=== PATIENT | male | born 1980 | race Caucasian/White ===

== ENCOUNTER → 2022-01-03 12:47 | Outpatient (BNVA) | payer MEDICARE, MEDICAID, SELFPAY | PROVIDERS: PCP Internal Medicine; Visit Provider Nurse Practitioner Family | DX: G43.109 Migraine with aura, not intractable, without status migrainosus (principal); R42 Dizziness and giddiness | CPT/HCPCS: 99212 ==

== ENCOUNTER → 2022-04-25 12:53 | Outpatient (BNVA) | payer MEDICARE, MEDICAID, SELFPAY | PROVIDERS: PCP Internal Medicine; Visit Provider Nurse Practitioner Family | DX: G43.109 Migraine with aura, not intractable, without status migrainosus (principal); R42 Dizziness and giddiness; Z79.899 Other long term (current) drug therapy | CPT/HCPCS: 99212 ==

== ENCOUNTER → 2022-08-13 14:08 | Outpatient (BNVA) | payer MEDICARE, MEDICAID, SELFPAY | PROVIDERS: PCP Internal Medicine; Visit Provider Nurse Practitioner Family | DX: G43.109 Migraine with aura, not intractable, without status migrainosus (principal); R42 Dizziness and giddiness; R25.1 Tremor, unspecified; E10.9 Type 1 diabetes mellitus without complications; Z79.899 Other long term (current) drug therapy | CPT/HCPCS: 99212 ==

== ENCOUNTER → 2022-12-17 11:22 | Outpatient (BNVA) | payer MEDICARE, MEDICAID, SELFPAY | PROVIDERS: PCP Internal Medicine; Visit Provider Nurse Practitioner Family | DX: G43.109 Migraine with aura, not intractable, without status migrainosus (principal); E10.9 Type 1 diabetes mellitus without complications; H81.10 Benign paroxysmal vertigo, unspecified ear; G47.00 Insomnia, unspecified; F31.9 Bipolar disorder, unspecified; F10.21 Alcohol dependence, in remission; Z79.4 Long term (current) use of insulin; Z79.899 Other long term (current) drug therapy | CPT/HCPCS: 99212 ==

== ENCOUNTER → 2023-03-19 12:41 | Outpatient (BNVA) | payer MEDICARE, MEDICAID, SELFPAY | PROVIDERS: PCP Internal Medicine; Visit Provider Nurse Practitioner Family | DX: G43.109 Migraine with aura, not intractable, without status migrainosus (principal); R42 Dizziness and giddiness; R25.1 Tremor, unspecified | CPT/HCPCS: 99212 ==

== ENCOUNTER 2023-07-22 11:21 | Outpatient (AMB) | payer MEDICARE, MEDICAID, SELFPAY ==
--- NOTE | 2023-07-22 11:22 | MHC.OFFVIS ---
Intake Vital Signs 07/22/23 11:31 BP 118/74 Blood Pressure Location Rt brachial Position Sitting Pulse 86 Pulse Source Pulse Oximeter Pulse Oximetry (%) 98 Oxygen Delivery Method Room Air Intake Visit Reasons: 4m follow up - Confirmed Intake Note: Patient presents for 4 month follow up. Patient states I've had only one big headache since I seen her last seems like sumatriptan is working Allergies pork derived (porcine) Allergy (Severe, Verified 07/22/23 11:29) Diarrhea simvastatin Allergy (Severe, Verified 07/22/23 11:29) Muscle Pain Latex Allergy (Severe, Uncoded 07/22/23 11:29) Rash Sulfa Allergy (Unknown, Uncoded 07/22/23 11:29) Anaphylaxis Medication List - Last Reconciled 07/22/23 by ROBERT Pederson atorvastatin 20 mg PO DAILY calcipotriene 0.005% appl topical BID clonazepam 0.5 mg PO DAILY finasteride 5 mg PO DAILY fluoxetine 40 mg PO DAILY fluoxetine 0 mg PO fremanezumab-vfrm (Ajovy) 225 mg (1.5 mL) subcut ONCE 30 days gabapentin 300 mg (1/2 x 600 mg) PO BID 30 days insulin lispro (Humalog KwikPen (U-100) Insulin) 1 - 5 sliding scale doses subcut TID insulin lispro (Humalog U-100 Insulin) 0 - 100 units subcut DAILY lamotrigine 100 mg PO DAILY lamotrigine ER 25 mg PO DAILY lisinopril 2.5 mg PO DAILY olanzapine mg PO quetiapine ER 400 mg PO QPM sumatriptan succinate 50 - 100 mg (0.5 - 1 x 100 mg) PO Q2H PRN 30 days topiramate 50 mg PO BID 90 days triamcinolone acetonide 0.1% 1 appl topical BID-TID zolpidem 10 mg PO BEDTIME PRN HPI HPI Comments History of Present Illness Details 42-yr-old male presents for f/u visit. Pt denies any significant interval medical changes. However, he is concerned that over the last few weeks he is increasingly more tired and sleepy during the day. he is yawning more. He is not napping as he does not wnat to interfere w/ his noighttime sleep- so when drowsiness he tries to get up and be active. He states he is sleeping 8 hrs per night. Not sure if he snores- lives alone. Deies any recent infections, fevers, joint pains, numbness/tingling. No recent changes in his mood or psych med regimen. Recent CBC, CMP, HgA1C- Nl. He has never had a HST. His headaches are well-controlled on current regimen- has had a few mild-mod headaches and 1 severe migraine attack (reports just crept up on him) since last visit 4 months ago. He feels Ajovy works well, however injection may be uncomfortable. He manages dizziness by pacing activities and avoiding over stimulation. Tremor is stable. [facility] Medical History (Updated 07/22/23 @ 11:43 by ROBERT Pederson) Alcoholism in remission Benign prostate hyperplasia Bipolar disorder BPPV (benign paroxysmal positional vertigo) GERD (gastroesophageal reflux disease) HLD (hyperlipidemia) Insomnia Psoriasis Type I diabetes mellitus Surgical History Hx of appendectomy Family History Father Diabetes mellitus Heart disease Hypothyroidism Social History (Updated 03/19/23 @ 12:52 by Diana Jacobs CMA) Alcohol intake: former Year quit: 2019 Patient Tobacco Use Status: Former Tobacco user Tobacco use type: Cigarette Years Smoked: 10 years Review of Systems Const All systems reviewed & are unremarkable except as noted in HPI and below Physical Exam Vital Signs: Last Vital Signs Pulse 86 07/22/23 11:31 BP 118/74 07/22/23 11:31 Pulse Ox 98 07/22/23 11:31 Oxygen Delivery Method Room Air 07/22/23 11:31 Const General: cooperative and no acute distress Orientation/consciousness: patient oriented x3 HEENT Head: Yes normocephalic Resp Effort & Inspection: normal respiratory effort and able to speak in complete sentences Neuro General: patient oriented x3, gait normal and CN's II-XI intact bilaterally Cognition (Neuro): normal cognition Motor exam (neuro): 5/5 motor strength present throughout Psych Appearance: grossly normal Mental Status: mental status grossly normal Speech and movement: Normal speech and movement present Affect: normal affect Attitude: cooperative Thought process: Normal thought process present Thought content: Normal thought content present Insight: Good insight present (Psych) Judgement: Good judgement present (Psych) Assessment & Plan Assessment & Plan (1) Fatigue: Code(s): R53.83 - Other fatigue (2) Migraine with aura: Code(s): G43.109 - Migraine with aura, not intractable, without status migrainosus (3) Dizziness: Comment: likely vestibular migraine. normal brain MRI w/wo (Jul 2021) Code(s): R42 - Dizziness and giddiness (4) Tremor: Comment: ? ET or neuroleptic induced Code(s): R25.1 - Tremor, unspecified Plan For newer onset increased daytime sleepiness- Check labs for common etiologies. Future considerations: HST For migraine and dizziness: Continue Ajovy 225mg/1.5 ml sc once a month, as pt is already having good clinical effect. Allow Ajovy to come to room temp x's 60-90 min before injection- may lessen injection discomfort. Continue Topiramate 50mg bid. Continue prn Sumatriptan at onset of migraine. Continue Lamotrigene- per psych. Continue using green lights and blue light filtering glasses. Continue limiting dizziness triggers, pacing activities. Previous trial: Amitriptyline- ineffective. Contraindications: Beta-blockers d/t h/o diabetes type I. ? For tremor: Continue Gabapentin 300mg po bid (note pt cannot take capsule d/t pork allergy). Contraindications: Beta-blockers d/t h/o diabetes type I. Orders: Orders Vitamin B12 and Folate Today R25.1 - Tremor, unspecified, R42 - Dizziness and giddiness, R53.83 - Other fatigue TSH reflex Free T4 Today R25.1 - Tremor, unspecified, R42 - Dizziness and giddiness, R53.83 - Other fatigue Vitamin D 25-OH (D2 and D3) Today R25.1 - Tremor, unspecified, R42 - Dizziness and giddiness, R53.83 - Other fatigue Coding Level of Care Code Est Pt Level 4 (76432) Diagnoses Fatigue R53.83 Migraine with aura G43.109 Dizziness R42 Tremor R25.1
[2023-07-22 11:31] VITALS: BP 118/74; PULSE 86; O2SAT 98
== END 2023-07-22 12:02 | disposition home or self-care (01) ==
PROVIDERS: Visit Provider Nurse Practitioner Family
DX: R53.83 Other fatigue (principal); G43.109 Migraine with aura, not intractable, without status migrainosus; R42 Dizziness and giddiness; R25.1 Tremor, unspecified
CPT/HCPCS: 99214

== ENCOUNTER → 2023-07-22 11:21 | Outpatient (BNVA) | payer MEDICARE, MEDICAID, SELFPAY | PROVIDERS: Visit Provider Nurse Practitioner Family | DX: R25.1 Tremor, unspecified (principal); R42 Dizziness and giddiness; R53.83 Other fatigue; G43.709 Chronic migraine without aura, not intractable, without status migrainosus | CPT/HCPCS: 99212 ==

== ENCOUNTER 2023-11-12 11:01 | Outpatient (AMB) | payer MEDICARE, MEDICAID, SELFPAY ==
[2023-11-12 11:14] VITALS: BP 108/60; PULSE 94; O2SAT 98; BMI 27.8
--- NOTE | 2023-11-12 11:14 | MHC.OFFVIS ---
Intake Vital Signs 11/12/23 11:14 Height 5 ft 11 in Weight 199 lb BMI 27.8 BP 108/60 Blood Pressure Location Rt brachial Position Sitting Pulse 94 Pulse Source Pulse Oximeter Pulse Oximetry (%) 98 Oxygen Delivery Method Room Air Intake Visit Reasons: 4m follow up-Confirmed Intake Note: Patient presents for 4 month follow up. Allergies pork derived (porcine) Allergy (Severe, Verified 11/12/23 11:16) Diarrhea simvastatin Allergy (Severe, Verified 11/12/23 11:16) Muscle Pain Latex Allergy (Severe, Uncoded 11/12/23 11:16) Rash Sulfa Allergy (Unknown, Uncoded 11/12/23 11:16) Anaphylaxis Medication List - Last Reconciled 11/12/23 by ROBERT Pederson atorvastatin 20 mg PO DAILY calcipotriene 0.005% appl topical BID cholecalciferol (vitamin D3) 25 mcg PO DAILY 30 days clonazepam 0.5 mg PO DAILY finasteride 5 mg PO DAILY fluoxetine 40 mg PO DAILY fluoxetine 0 mg PO folic acid 1 mg PO DAILY 30 days fremanezumab-vfrm (Ajovy) 225 mg (1.5 mL) subcut ONCE 30 days gabapentin 300 mg (1/2 x 600 mg) PO BID 30 days insulin lispro (Humalog KwikPen (U-100) Insulin) 1 - 5 sliding scale doses subcut TID insulin lispro (Humalog U-100 Insulin) 0 - 100 units subcut DAILY lamotrigine 100 mg PO DAILY lamotrigine ER 25 mg PO DAILY lisinopril 2.5 mg PO DAILY olanzapine mg PO quetiapine ER 400 mg PO QPM sumatriptan succinate 50 - 100 mg (0.5 - 1 x 100 mg) PO Q2H PRN 30 days topiramate 50 mg PO BID 90 days triamcinolone acetonide 0.1% 1 appl topical BID-TID zolpidem 10 mg PO BEDTIME PRN HPI HPI Comments History of Present Illness Details 43-yr-old male presents for f/u visit. Pt reports that he did recently hit the front of his head on his chicken coop- had some concussion s/s- dizziness, nausea, poor vision focus, headache x's a few days. This has self-resolved. Since he has not had any migraine attacks. Prior to this: He had forgotten to refill his Ajovy shortly after his last visit. After this he was able to manage his migraines with rest and/or sporadic sumatriptan use. Prior to the above concussion, he had noticed an increase in his migraine x's 2 weeks in the past month- needed to use sumatriptan 4-5 times over a 2 week span.. The Sumatriptan was helpful. He does continue to minimize his triggers. He is not interested in resuming Ajovy- the injections were painful and does not think was very helpful. His labs showed B-12- 576 NL Folate 3.2 L TSH- 2.7 NL Vtd D- 27.5 He did start folic acid 1mg after labs reviewed- he reports that his fatigue improved. he did run out of the folic acid more rcently and has been again feeling more tired. He wonder sif he can buy this OTC. [facility] Medical History (Updated 07/26/23 @ 08:27 by ROBERT Pederson) Psoriasis Alcoholism in remission Type I diabetes mellitus Insomnia HLD (hyperlipidemia) GERD (gastroesophageal reflux disease) Bipolar disorder Benign prostate hyperplasia BPPV (benign paroxysmal positional vertigo) Surgical History Hx of appendectomy Family History Father Diabetes mellitus Heart disease Hypothyroidism Social History Alcohol intake: former Year quit: 2019 Patient Tobacco Use Status: Former Tobacco user Tobacco use type: Cigarette Years Smoked: 10 years Review of Systems Const All systems reviewed & are unremarkable except as noted in HPI and below Physical Exam Vital Signs: Last Vital Signs Pulse 94 11/12/23 11:14 BP 108/60 11/12/23 11:14 Pulse Ox 98 11/12/23 11:14 Oxygen Delivery Method Room Air 11/12/23 11:14 BMI result Body Mass Index 27.8 Const General: cooperative and no acute distress Orientation/consciousness: patient oriented x3 HEENT Head: Yes normocephalic Resp Effort & Inspection: normal respiratory effort and able to speak in complete sentences Neuro General: patient oriented x3, gait normal and CN's II-XI intact bilaterally Cognition (Neuro): normal cognition Motor exam (neuro): 5/5 motor strength present throughout Psych Appearance: grossly normal Mental Status: mental status grossly normal Speech and movement: Normal speech and movement present Affect: normal affect Attitude: cooperative Thought process: Normal thought process present Thought content: Normal thought content present Insight: Good insight present (Psych) Judgement: Good judgement present (Psych) Assessment & Plan Assessment & Plan (1) Migraine with aura: Code(s): G43.109 - Migraine with aura, not intractable, without status migrainosus (2) Dizziness: Comment: likely vestibular migraine. normal brain MRI w/wo (Jul 2021) Code(s): R42 - Dizziness and giddiness (3) Low folic acid: Code(s): E53.8 - Deficiency of other specified B group vitamins (4) Fatigue: Code(s): R53.83 - Other fatigue Plan For daytime sleepiness: Resume Folic Acid 1mg qd- may purchase OTC. Offered to repeat folic acid level today- pt declined at this time d/t [id number] cost. Future considerations: HST ? For migraine and dizziness: Pt stopped Ajovy 225mg. Continue Topiramate 50mg bid. Continue prn Sumatriptan at onset of migraine. Continue Lamotrigene- per psych. Continue using green lights and blue light filtering glasses. Continue limiting dizziness triggers, pacing activities. Previous trial: Amitriptyline- ineffective. Ajovy- injection site pain, limited efficacy. Contraindications: Beta-blockers d/t h/o diabetes type I. Future considerations- Nurtec, Qulipta, Neuromodulation device. ? For tremor: Continue Gabapentin 300mg po bid (note pt cannot take capsule d/t pork allergy). Contraindications: Beta-blockers d/t h/o diabetes type I. Medications: Refilled sumatriptan succinate max 2 tabs per day/4 tabs per week. 50 - 100 mg (0.5 - 1 x 100 mg) PO Q2H 30 days PRN 12 tabs 6RF migraine Discontinued fremanezumab-vfrm (Ajovy) administer 225mg sc q month Discontinued Reason: Doctor's Order 225 mg (1.5 mL) subcut ONCE 30 days 1.5 mL 6RF G43.109 - Migraine with aura, not intractable, without status migrainosus Coding Level of Care Code Est Pt Level 4 (84479) Diagnoses Migraine with aura G43.109 Dizziness R42 Low folic acid E53.8 Fatigue R53.83
== END 2023-11-12 11:48 | disposition home or self-care (01) ==
PROVIDERS: PCP Internal Medicine; Visit Provider Nurse Practitioner Family
DX: G43.109 Migraine with aura, not intractable, without status migrainosus (principal); R42 Dizziness and giddiness; E53.8 Deficiency of other specified B group vitamins; R53.83 Other fatigue
CPT/HCPCS: 99214

== ENCOUNTER → 2023-11-12 11:01 | Outpatient (BNVA) | payer MEDICARE, MEDICAID, SELFPAY | PROVIDERS: PCP Internal Medicine; Visit Provider Nurse Practitioner Family | DX: G43.109 Migraine with aura, not intractable, without status migrainosus (principal); R42 Dizziness and giddiness; E53.8 Deficiency of other specified B group vitamins; R53.83 Other fatigue | CPT/HCPCS: 99212 ==

== ENCOUNTER → 2024-02-13 11:23 | Outpatient (BNVA) | payer MEDICARE, MEDICAID, SELFPAY | PROVIDERS: PCP Internal Medicine; Visit Provider Nurse Practitioner Family ==

== ENCOUNTER 2024-07-17 11:13 | Outpatient (AMB) | payer MEDICARE, MEDICAID, SELFPAY ==
--- NOTE | 2024-07-17 11:14 | MHC.OFFVIS ---
Vital Signs 07/17/24 11:15 Height 5 ft 11 in Weight 176 lb BMI 24.5 BP 98/74 Blood Pressure Location Rt brachial Position Sitting Pulse 102 H Pulse Source Pulse Oximeter Pulse Oximetry (%) 99 Oxygen Delivery Method Room Air Intake Visit Reasons: Follow Up-LVM Intake Note: Patient presents for follow up.patient migraines and dizziness are worst. Allergies pork derived (porcine) Allergy (Severe, Verified 07/17/24 11:17) Diarrhea simvastatin Allergy (Severe, Verified 07/17/24 11:17) Muscle Pain Latex Allergy (Severe, Uncoded 07/17/24 11:17) Rash Sulfa Allergy (Unknown, Uncoded 07/17/24 11:17) Anaphylaxis Medication List - Last Reconciled 07/17/24 by ROBERT Pederson atorvastatin 20 mg PO DAILY calcipotriene 0.005% appl topical BID cholecalciferol (vitamin D3) 25 mcg PO DAILY 30 days clonazepam 0.5 mg PO DAILY finasteride 5 mg PO DAILY fluoxetine 40 mg PO DAILY fluoxetine 0 mg PO folic acid 1 mg PO DAILY 30 days gabapentin 300 mg (1/2 x 600 mg) PO BID 30 days insulin lispro (Humalog KwikPen (U-100) Insulin) 1 - 5 sliding scale doses subcut TID insulin lispro (Humalog U-100 Insulin) 0 - 100 units subcut DAILY lamotrigine 100 mg PO DAILY lamotrigine ER 25 mg PO DAILY lisinopril 2.5 mg PO DAILY olanzapine mg PO quetiapine ER 400 mg PO QPM sumatriptan succinate 50 - 100 mg (0.5 - 1 x 100 mg) PO Q2H PRN 30 days topiramate 50 mg PO BID 90 days triamcinolone acetonide 0.1% 1 appl topical BID-TID zolpidem 10 mg PO BEDTIME PRN HPI Comments Details: 43-yr-old male presents for f/u visit. Pt endorses the following interval medical history changes: He reports he had an episode of syncope in early January 2023. He went out to take care of the chickens- maybe in the mid-day, when next thing he knew he was on the ground. He does not know how long he was on the ground. He has difficulty recalling the details, however he states as he came to he felt feeling a bit unsure of what happened, his balance was a bit off and tired. He did not have [employer] or tongue biting. He does not think he hit his head- as he did not have any signs of bumps, bruises or injury. He was able to get up on his own, and went into his house and sat down for the rest of the day. He states he felt fine prior to going outside. He had already eaten. His blood sugar was WNL. He does not recall having any associated headache, dizziness, ear pain, infection. He had not missed any of his lamotrigine, Topiramate, or Gabapentin doses- used for headache and mood d/o. He thinks maybe he sat down and just passed out- he thinks maybe he was dizzy before he sat down. But does not think he was dizzy afterwards. He has never passed out before or had a seizure. He has not passed out since. He is not prone to orthostatic lightheadedness, staring off, chest pain, palpitations. He denies family h/o syncope, seizures. Overall having more headaches. In the last month, he has had 3 more severe migraine days where he took sumatripatn, however he has daily symptoms of bilateral supraorbital and retroorbital pressure a/w dizziness and activity intolerance. Dizziness is more easily triggered. His tremor is better on Gabapentin. [facility] Medical History Psoriasis Alcoholism in remission Type I diabetes mellitus Insomnia HLD (hyperlipidemia) GERD (gastroesophageal reflux disease) Bipolar disorder Benign prostate hyperplasia BPPV (benign paroxysmal positional vertigo) Surgical History Hx of appendectomy Family History Father Diabetes mellitus Heart disease Hypothyroidism Social History Alcohol intake: former Year quit: 2019 Patient Tobacco Use Status: Former Tobacco user Tobacco use type: Cigarette Years Smoked: 10 years Physical Exam Vital Signs: Last Vital Signs Pulse 102 H 07/17/24 11:15 BP 98/74 07/17/24 11:15 Pulse Ox 99 07/17/24 11:15 Oxygen Delivery Method Room Air 07/17/24 11:15 BMI result Body Mass Index 24.5 Const General: cooperative and no acute distress Orientation/consciousness: patient oriented x3 Resp Effort & Inspection: normal respiratory effort and able to speak in complete sentences Neuro Other: EOM intact but increases bilateral retroorbital and supraorbital pressure pain. BUE very mild postural tremor. General: patient oriented x3 and deep tendon reflexes 2+ bilaterally Cranial nerves: Yes CN's II-XII intact bilaterally Cognition (Neuro): normal cognition Gait exam (Neuro): Normal gait present Motor exam (neuro): 5/5 motor strength present throughout Psych Appearance: grossly normal Mental Status: mental status grossly normal Speech and movement: Normal speech and movement present Affect: normal affect Attitude: cooperative Assessment & Plan Assessment & Plan (1) Syncope and collapse: Code(s): R55 - Syncope and collapse Category: Medical (2) Migraine with aura: Code(s): G43.109 - Migraine with aura, not intractable, without status migrainosus Category: Medical (3) Dizziness: Comment: likely vestibular migraine. normal brain MRI w/wo (Jul 2021) Code(s): R42 - Dizziness and giddiness Category: Medical (4) Tremor: Comment: ? ET or neuroleptic induced Code(s): R25.1 - Tremor, unspecified Category: Medical Plan For h/o unwitnessed isolated syncope in January 2024: Pt does not recall specifics of syncopal episode and unsure of duration making etiology unclear. Possibly cardiogenic, as pt is prone to hypotension and dizziness, though generally good w/ taking fluids. Possibly epileptic, as pt does recall post-syncopal tiredness, feeling off-balance and pt is on multiple AEDs for tx of mood/migraine. Will request recent PCP notes from Dr Coelho. Thus pt advised to undergo: Baseline EEG. Brain MRI w/wo Cardiology consult. For daytime sleepiness: Continue folic Acid 1mg qd- may purchase OTC, as pt has had positive effect from use. Future considerations: HST ? For migraine and dizziness: Resume Ajovy 225mg sc q month. Monitor injection site discomfort. May try applying ice to injection site prior to injection. Continue Topiramate 50mg bid. Continue prn Sumatriptan at onset of migraine. Continue Lamotrigene- per psych. Continue using green lights and blue light filtering glasses. Continue limiting dizziness triggers, pacing activities. Previous trial: Amitriptyline- ineffective. Contraindications: Beta-blockers d/t h/o diabetes type I. Nurtec- d/t pork allergy. Ant-HTN agents d/t h/o syncope and hypotension. Future considerations- Aimovig Qulipta, Vyepti, Neuromodulation device. ? For tremor: Continue Gabapentin 300mg po bid (note pt cannot take capsule d/t pork allergy). Contraindications: Beta-blockers d/t h/o diabetes type I. Orders: Orders MR head/brain wo/w con Today R55 - Syncope and collapse EEG electroencephalogram Today R55 - Syncope and collapse Referrals Cardiology Referral R55 - Syncope and collapse Medications: New fremanezumab-vfrm (Ajovy) administer 225mg sc q month 225 mg (1.5 mL) subcut ONCE 30 days 1.5 mL 6RF Coding Level of Care Code Est Pt Level 4 (37583) Diagnoses Syncope and collapse R55 Migraine with aura G43.109 Dizziness R42 Tremor R25.1
[2024-07-17 11:15] VITALS: BP 98/74; PULSE 102; O2SAT 99; BMI 24.5
== END 2024-07-17 12:14 | disposition home or self-care (01) ==
LOC: HO.HSMS 11:13
PROVIDERS: PCP Internal Medicine; Visit Provider Nurse Practitioner Family
DX: R55 Syncope and collapse (principal); G43.109 Migraine with aura, not intractable, without status migrainosus; R42 Dizziness and giddiness; R25.1 Tremor, unspecified
CPT/HCPCS: 99214

== ENCOUNTER → 2024-07-17 11:13 | Outpatient (BNVA) | payer MEDICARE, MEDICAID, SELFPAY | PROVIDERS: PCP Internal Medicine; Visit Provider Nurse Practitioner Family | DX: G43.109 Migraine with aura, not intractable, without status migrainosus (principal); R55 Syncope and collapse; R42 Dizziness and giddiness; R25.1 Tremor, unspecified | CPT/HCPCS: 99212 ==

== ENCOUNTER 2024-08-11 09:27 | Outpatient (REF) | payer MEDICARE, MEDICAID, SELFPAY | END 2024-08-11 09:28 | disposition home or self-care (01) | LOC: HO.SH 09:27 | PROVIDERS: Visit Provider Internal Medicine | DX: Z01.118 Encounter for examination of ears and hearing with other abnormal findings (principal); H90.A22 Sensorineural hearing loss, unilateral, left ear, with restricted hearing on the contralateral side | CPT/HCPCS: 92557; 92567 ==

== ENCOUNTER → 2024-08-23 12:28 | Outpatient (BNV) | payer MEDICARE, MEDICAID, SELFPAY | PROVIDERS: PCP Internal Medicine; Visit Provider Radiology Diagnostic Radiology | DX: R55 Syncope and collapse (principal) | CPT/HCPCS: 70553 ==

== ENCOUNTER 2024-08-23 12:29 | Outpatient (REF) | payer MEDICARE, MEDICAID, SELFPAY ==
--- NOTE | ~2024-08-23 | MR_ITS ---
EXAMINATION: MR BRAIN WITHOUT AND WITH CONTRAST CLINICAL INFORMATION: Syncope. Dizziness. COMPARISON: MRI dated October 16, 2012. Correlated to MRI report dated June 02, 2017. TECHNIQUE: Multiplanar, multisequence MRI of the brain was obtained before and after the intravenous administration of 8.5 mL of gadolinium without reported immediate complications. FINDINGS: No restricted diffusion. No abnormal enhancement in the intra-axial or extra-axial compartment of the cranium. No acute intracranial hemorrhage, mass effect, midline shift, hydrocephalus or herniation. Loza-white matter differentiation is normal. Posterior cranial fossa contents demonstrated no signal abnormality or enhancing lesion. Sellar/suprasellar region is normal. Craniocervical junction is intact and normal. Flow-void signal within the mean vessels is normal. MR/MR head/brain wo/w con IMPRESSION: No enhancing lesion. No acute or structural brain abnormality. Electronically signed by: Gary Redmond MD 09/29/2024 03:21 PM EDT
[2024-08-23] MEDS: gadobutroL 10 ML VIAL IVPUSH (13:12)
== END 2024-08-23 12:30 | disposition home or self-care (01) ==
LOC: HO.MRI 12:29
PROVIDERS: PCP Internal Medicine; Visit Provider Nurse Practitioner Family
DX: R55 Syncope and collapse (principal)
CPT/HCPCS: 70553; A9585

== ENCOUNTER 2024-09-16 12:40 | Outpatient (REF) | payer MEDICARE, MEDICAID, SELFPAY ==
--- NOTE | 2024-09-16 12:47 | EEG_ITS ---
SUMMARY: This is a 16-channel EEG with an EKG lead. The patient is reported awake during the tracing. Background EEG rhythm is 5-20 microvolt posteriorly, lower amplitude fast anteriorly with mixed theta-beta rhythm with no obvious asymmetry or paroxysmal tendency. Photic stimulation does not produce any significant abnormality. Hyperventilation is unremarkable. Cardiac lead does not reveal any significant abnormality. No definite sharp wave spikes or paroxysmal tendency noted. IMPRESSION: No significant abnormality noted on this EEG. MD SUSANNA Trejo/SIRI / [id number]
== END 2024-09-16 12:41 | disposition home or self-care (01) ==
LOC: HO.NEURO 12:40
PROVIDERS: PCP Internal Medicine; Visit Provider Nurse Practitioner Family
DX: R55 Syncope and collapse (principal)
CPT/HCPCS: 95816

== ENCOUNTER 2024-11-26 09:40 | Outpatient (AMB) | payer MEDICARE, MEDICAID, SELFPAY ==
--- OUTSIDE RECORDS SUMMARY | 2024-11-26 09:43 | XMS_ITS | Data Portability ---
Author Organization [place] - [facility], Allergy Address [address] [address] Care Team Providers Care Research Group Director Name Role Phone RAI ZAHNG Primary Care Provider Assessment No assessment recorded. Plan of Treatment Reminders Order Date Submit Date Provider Last Modified By Organization Details Last Modified Time Details Appointments None record ed. Lab None record ed. Referral None record ed. Procedures None record ed. Surgeries None record ed. Imaging None record ed. Medication Orders None record ed. Patient TargetsNo targets recorded. Patient InstructionsNo instructions recorded. Reason for Referral None Reported. Problems Name Problem SNOMED Code Status Onset Date Resolution Date Notes Provider Name and Address Organization Details Recorded Time Vertigo of central origin 04693058 Active 2020 Vertigo of central origin; Note: Date Diagnosed : 07/11/2021 1:13 PM (H81.4) Not Available [facility] 02:31:42 Sensorine ural hearing loss of bilateral ears 595902156 Active 2020 Sensorine ural hearing loss, bilateral ; Note: Date Diagnosed : 07/11/2021 9:33 AM (H90.3) Not Available [facility] 4 02:31:41 Refractor y migraine 186757391 Active 2020 Other migraine, intractab le, without status migrainos us; Note: Date Diagnosed : 07/11/2021 1:13 PM (G43.819) Not Available [facility] 4 02:31:54 Bilateral tinnitus 61894621642 02 Active 2020 Tinnitus, bilateral ; Note: Date Diagnosed : 07/11/2021 9:33 AM (H93.13) Not Available [facility] 4 02:31:48 Dizziness and giddiness 290929562 Active 2020 Dizziness and giddiness ; Note: Date Diagnosed : 07/11/2021 9:33 AM (R42) Not Available [facility] 4 02:31:47 Sensorine ural hearing loss in left ear 90185107628 109 Active 2023 CRIS LAL MD [address] [place] [address], [facility] [place], [phone] , [facility] - [facility] 4 11:55:34 Problem Notes None recorded. Procedures Surgical History Date Name Laterality Status Provider Name and Address Organization Details Recorded Time Appendectomy completed Krupa Zhang [place] - [facility] 09/30/2024 16:10:48 Imaging Results None recorded. Procedure Notes None recorded. Medical Equipment None Reported. Allergies Allergen ID Allergen Name Allergen Category Reaction Reaction Severity Criticality Documentation Date Start Date Code Code System Note Provider Name and Address Organization Details Recorded Time 249225 pork allergeni c extract food,medi cation Not available Not available Not available 09/30/2024 83346 8 RxNorm Krupa santiago [place] - [facility] 4 16:11:54 983576 latex environme nt,medica tion Not available Not available Not available 09/30/2024 10011 91 RxNorm Krupa santiago [place] [facility] 16:11:59 21041 simvastat in medicatio n other Not available Not available 04/14/2024 36301 RxNorm React ion: Unkno wn; Not Available [facility] 4 00:54:51 Medications Name Sig Start Date Stop Date Status Note LastModified by Organization Details LastModified Time fluoxetin e 40 mg capsule TAKE TWO CAPSULES BY MOUTH EVERY DAY active Not Available Not Available No t Available amoxicill in 500 mg capsule TAKE ONE CAPSULE BY MOUTH THREE TIMES A DAY FOR 7 DAYS 10/01 completed Not Available Not Available Not Available gabapenti n 600 mg tablet TAKE 1/2 TABLET BY MOUTH TWICE DAILY active Not Available Not Available No t Available atorvasta tin 20 mg tablet TAKE ONE TABLET BY MOUTH EVERY DAY active Not Available Not Available No t Available atorvasta tin 10 mg tablet 10/01 completed Medicati on ID: [id number] rand Name: atorvast atin Sen d Method: E-Prescr ibed Sub s Allowed: subs OK Medic ationGen ericName : atorvast atin Not Available Not Available Not Available ibuprofen 800 mg tablet TAKE ONE TABLET BY MOUTH EVERY 6 TO 8 HOURS NEEDED FOR PAIN active Not Available Not Available No t Available sumatript an 100 mg tablet active Not Available Not Available Not Available hydroxyzi ne pamoate 50 mg capsule 10/01 completed Medicati on ID: [id number] rand Name: hydroxyz ine pamoate Send Method: E-Prescr ibed Sub s Allowed: subs OK Speci al Instruct ion: TAKE 1 4 CAPSULES BY MOUTH EVERY EIGHT HOURS NEEDED(I NS MAX 8/DAY) Abby torres Ulisses Name: hydroxyz ine pamoate Not Available Not Available Not Available acetamino phen 300 mg-codein e 30 mg tablet TAKE ONE TABLET BY MOUTH EVERY 6 TO 8 HOURS NEEDED FOR PAIN active Not Available Not Available No t Available quetiapin e 100 mg tablet TAKE ONE TABLET BY MOUTH TWICE A DAY 10/01 completed Not Available Not Available Not Available acetamino phen 500 mg tablet TAKE ONE TABLET BY MOUTH THREE TIMES A DAY NEEDED 10/01 completed Not Available Not Available Not Available Humalog U-100 Insulin 100 unit/mL subcutane ous solution USE UP TO 100 UNITS DAILY VIA INSULIN PUMP active Not Available Not Available No t Available econazole 1 % topical cream APPLY TWICE DAILY TO RASH IN GROIN FOR 3 WEEKS, THEN APPLY ONCE WEEKLY FOR MAINTENA NCE active Not Available Not Available No t Available calcipotr iene 0.005 % topical cream APPLY TO AFFECTED AREAS OF PSORIASI S TWICE DAILY 10/01 completed Not Available Not Available Not Available oxycodone -acetamin ophen 2.5 mg-325 mg tablet TAKE ONE TO TWO TABLETS BY MOUTH EVERY 4 TO 6 HOURS NEEDED FOR PAIN 10/01 completed Not Available Not Available Not Available lorazepam 1 mg tablet TAKE ONE TABLET BY MOUTH TWICE A DAY NEEDED NEEDED FOR ANXIETY active Not Available Not Available No t Available zolpidem 10 mg tablet TAKE ONE TABLET BY MOUTH EVERY DAY AT BEDTIME NEEDED INSOMNIA active Not Available Not Available No t Available fluoxetin e 20 mg capsule TAKE ONE CAPSULE BY MOUTH EVERY DAY WITH 40MG CAPSULE TO EQUAL 60MG DAILY active Not Available Not Available No t Available lisinopri l 2.5 mg tablet active Not Available Not Available Not Available doxycycli ne hyclate 100 mg tablet TAKE ONE TABLET BY MOUTH EVERY 12 HOURS 10/01 completed Not Available Not Available Not Available lamotrigi ne 100 mg tablet TAKE ONE TABLET BY MOUTH EVERY DAY active Not Available Not Available No t Available finasteri de 5 mg tablet active Not Available Not Available Not Available topiramat e 50 mg tablet TAKE ONE TABLET BY MOUTH TWICE A DAY active Not Available Not Available No t Available chlorhexi dine gluconate 0.12 % mouthwash RINSE WITH 15ML TWICE DAILY MORNING AND EVENING) AFTER BRUSHING FOR 30 SECONDS 10/01 completed Not Available Not Available Not Available quetiapin e ER 400 mg tablet,ex tended release 24 hr TAKE ONE TABLET BY MOUTH EVERY DAY AT BEDTIME active Not Available Not Available No t Available Lantus Solostar U-100 Insulin 100 unit/mL (3 mL) subcutane ous pen 10/01 completed Medicati on ID: [id number] rand Name: Lantus Solostar U-100 Insulin Send Method: E-Prescr ibed Sub s Allowed: subs OK Medic ationGen ericName : Lantus Solostar U-100 Insulin Not Available Not Available Not Available Humalog KwikPen (U-100) Insulin 100 unit/mL subcutane ous 10/01 completed Medicati on ID: [id number] B rand Name: Humalog KwikPen Insulin Send Method: E-Prescr ibed Sub s Allowed: subs OK Medic ationGen ericName : Humalog KwikPen Insulin Not Available Not Available Not Available lamotrigi ne ER 25 mg tablet,ex tended release 24 hr TAKE ONE TABLET BY MOUTH EVERY DAY WITH 100MG TABLET TO EQUAL 125MG 10/01 completed Not Available Not Available Not Available Otezla 30 mg tablet active Not Available Not Available No t Available Baqsimi 3 mg/actuat ion nasal spray ADMINIST ER 3MG INTO THE LEFT NOSTRIL ONCE ONLY TO BE GIVEN IN EMERGENC Y IF BLOOD SUGAR IS LOW AND UNCONSCI OUS. TO BE GIVEN BY A FAMILY MEMBE active Not Available Not Available No t Available Ajovy 225 mg/1.5 mL subcutane ous auto-inje ctor USE TO INJECT 225MG SUBCUTAN EOUSLY ONCE EVERY MONTH active Not Available Not Available No t Available Vitals Date Recorded Body height Body weight Provider Name and Address Organization Details Last Updated DateTime 10/01/2024 180.34 cm 81094.55 g Krupa Zhang [place] [facility] 10/01/2024 11:28:39 Social History None recorded. Functional Status None recorded. Mental Status None recorded. Family History Nothing Reported. Medical History Condition Response Diabetes Y Anxiety Y High Cholesterol Y GERD/Reflux Y Depression Y Past Encounters Encounter ID Performer Location Encounter Start Date Encounter Closed Date Diagnosis/Indication Diagnosis SNOMED-CT Code Diagnosis ICD10 Code [id number] CRIS LAL MD [facility] [address] [address] 10/01/2024 10:24:27 10/01/2024 11:54:52 Sensorineural hearing loss in left ear [id number] 9109 H90.42 Refractory migraine 4238 21801 G43.819 Vertigo of central origin 42610471 H81.4 Health Concerns Section Related Observation LastModified by Organization Detai ls LastModified Time None Recorded Concern Status LastModified by Organization Details LastModified Time None Recorded Advance Directives Directive None Recorded Payers Encounter Date Sequence Insurance Name Policy Number Policy Culp Covered Member ID Culp Member ID Guarantor Name 10/01/2024 1 [place] [employer] Donald Taylor [id number] Rajendra Taylor 10/01/2024 2 [place] [facility] Rajendra Taylor [id number] Rajendra Taylor Notes Date Note Type Note Provider Name and Address Organization Details Recorded Time 10/01/2024 text/html 44-year-old male who I evaluated 4 years ago. His history at that time is as follows: 40-year-old male who is referred for evaluation of chronic motion intolerance. Since November,patient reports that he cannot move his eyes or head without feeling a shifting sensation in his vision. If he moves too much, he will have worsening symptoms of nausea and vomiting. He reports that he has nausea almost every day, only temporary relieved by marijuana. Apparently he is tried other antinausea medications without success. He has a vomiting two or three times per week. He does not have true rotational spinning sensation. He has chronic highpitched tinnitus which does not fluctuate. Rare flareups of up to 30 seconds once a month or so. He does have occasional hyperacusis. He does have a occasional rare headache behind the left eye once a month or so. He does nothave chronic head pressure sensation. He does have sparkling white sensation in his peripheral visual gardiner once or twice a day. Sometimes these are associated with a sensation of body vibration . Patient does have bipolar disorder and he is on several different medications for this. He's spoken with the clinician who manages his medications and wondered if his symptoms could be related to these medications. He has not had MRI scan of his brain. He has had recent ophthalmologic examination which was apparently normal. He did not bring up his motion intolerance with the composition worker. His sister does have severe migraine. He did have a brief evaluation with physical therapy at [facility] which was not helpful. At that visit we discussed the likelihood that his symptoms were related to chronic vestibular migraine as well as ocular migraine. I did not suspect any specific otologic etiology for his symptoms. We also discussed that his symptoms could have been related to the multiple centrally acting medications that he was on at the time. MRI scan at that time showed no signs of retrocochlear pathology or intracranial pathology. Patient has since been working with a neurologist in [place] for treatment of vestibular migraine. He did have a new updated MRI scan which was reportedly normal. Patient had audiometric testing at [facility] audiology couple of months ago and was noted to have asymmetric sensorineural hearing loss affecting the left ear greater than right. He is looking to get amplification for the left ear and needs medical clearance. CRIS LAL MD [address] [place] [address], [place], [phone], [facility] - [facility] 10/01/2024 11:56:54
--- OUTSIDE RECORDS SUMMARY | 2024-11-26 09:43 | XMS_ITS | Continuity of Care Document ---
Author Organization [facility] Bucky lt Address [address] [place] [address]- Care Team Providers Care Regulatory Manager Name Role Phone Laquita FUNK, Aldo Morales Primary Care Physician Encounter [facility] [place] Date(s): 10/20/24 - 11/19/24 [facility] Adult [address] [place] [address]- Encounter Type: Triage Allergies, Adverse Reactions, Alerts Substance Criticality Severity Reaction Reaction Severity Status Pork Active simvastatin Active sulfa drugs Active Latex Active Immunizations Given and Recorded Vaccine Date Status Refusal Reason SARS-CoV-2(COVID-19)mRNA-LNP vac([id number]) 11/28/23 Recorded influenza virus vaccine, inactivated 11/15/23 Give n pneumococcal 20-valent conjugate vaccine 1 05/21/23 Given SARS-CoV-2 (COVID-19) mRNA-1273 vaccine 11/27/21 R ecorded SARS-CoV-2 (COVID-19) mRNA-1273 vaccine 04/16/21 R ecorded SARS-CoV-2 (COVID-19) mRNA-1273 vaccine 03/19/21 R ecorded pneumococcal 23-valent vaccine 12/10/18 Recorded tetanus/diphtheria/pertussis, acel(Tdap) 12/02/15 Recorded tetanus/diphtheria/pertussis, acel(Tdap) 07/08/13 Recorded tetanus-diphtheria toxoids (Td) 05/18/13 Recorded tetanus-diphtheria toxoids (Td) 03/21/95 Recorded hepatitis B pediatric vaccine 08/26/98 Recorded hepatitis B pediatric vaccine 05/16/98 Recorded hepatitis B pediatric vaccine 04/09/98 Recorded Measles/Mumps/Rubella Virus Vaccine 03/16/92 Recor ded Measles/Mumps/Rubella Virus Vaccine 10/26/81 Recor ded 1Result Comment: [id number] Medications Aspirin Enteric Coated 81 mg oral delayed release tablet See Instructions, TAKE ONE TABLET BY MOUTH EVERY DAY, # 90 tablet, 1 Refills, [facility], 180, cm, 08/25/21 12:59:00 EDT, Height Start Date: 11/19/21 Status: Ordered Quantity: 90.0 Unit: tablet Repeat number: 1 atorvastatin 20 mg oral tablet 1 tablet, By Mouth, Daily, # 90 tablet, 3 Refills, Maintenance, 06/16/24 5:23:00 PM EDT, [facility], 180, cm, 05/19/24 9:37:00 EDT, Height Start Date: 06/16/24 Status: Ordered Quantity: 90.0 Unit: tablet Repeat number: 4 Baqsimi Two Pack 3 mg nasal powder = 3 mg, Naris, Left, Once, only to use for emergency if blood sugar is low and unconscious. to be given by a family member. if this medication needs to be used please call 911 after admnistering, # 2each, 2 Refills, Soft Stop, 08/31/24 3:38:00 PM EDT, [facility], Dx: E10.9, 180, cm, 08/31/24 15:06:00 EDT, Height Start Date: 08/31/24 Status: Ordered Quantity: 2.0 Unit: each Repeat number: 3 Indication: Type 1 diabetes mellitus with other diabetic ophthalmic complication finasteride 5 mg oral tablet 1 tablet, By Mouth, Daily, # 90 tablet, 1 Refills, Maintenance, 10/20/24 9:39:00 AM EST, [facility], 180, cm, 08/31/24 15:06:00 EDT, Height Start Date: 10/20/24 Status: Ordered Quantity: 90.0 Unit: tablet Repeat number: 1 FLUoxetine 40 mg oral capsule 2 capsule = 80 mg, By Mouth, Daily, for 30 days, # 60 capsule, 3 Refills, Hard Stop 01/17/25 11:08:00 AM EST, 09/19/24 11:08:00 AM EDT, Capsule, [facility], Partial fill upon patientrequest if the prescription is for a schedule II opioid drug., 180, cm, 08/31/24 15:06:00 EDT, Height Start Date: 09/19/24 Stop Date: 01/17/25 Status: Ordered Quantity: 60.0 Unit: capsule Repeat number: 4 FLUoxetine 40 mg oral capsule 2 capsule = 80 mg, By Mouth, Daily, # 60 capsule, 3 Refills, Maintenance, 01/17/25 11:08:00 AM EST, Capsule, [facility], Partial fill upon patient request if the prescription is for a schedule II opioid drug., 180, cm, 08/31/24 15:06:00 EDT, Height Start Date: 01/17/25 Stop Date: 05/17/25 Status: Ordered Quantity: 60.0 Unit: capsule Repeat number: 4 Folate Forte oral tablet 1 tablet, By Mouth, Daily, # 30 tablet, 0 Refills, Maintenance, 11/15/23 10:17:00 AM EST, [facility], Partial fill upon patient request if the prescription is for a schedule II opioid drug., 1 tablet By Mouth Daily, 180, cm, 11/15/23 9:55:00 EST, Height Start Date: 11/15/23 Status: Ordered Quantity: 30.0 Unit: tablet Repeat number: 1 Free Style Precision EDE test strips Free Style Precision EDE test strips, See Instructions, # 100 each, Refills 11, Tot. Refills 11, Maintenance, FreeStyle Precision Ede test strips that go with Scott device DM 2 E11.9, 05/27/19 10:50:09 AM EDT, Compound Start Date: 05/27/19 Status: Ordered Quantity: 100.0 Unit: each Repeat number: 12 Freestyle Lite Test Strips See Instructions, # 150 each, Refills 11, Tot. Refills 11, Maintenance, Use to check blood glucose levels 5x per day. E10.9, 07/18/22 1:43:00 PM EDT, Supply, 180, cm, 04/19/22 11:50:00 EDT, Height Start Date: 07/18/22 Status: Ordered Quantity: 150.0 Unit: each Repeat number: 12 Indication: Type 1 diabetes mellitus without complications gabapentin 600 mg oral tablet 0 Refills, Maintenance, 10/09/22 11:05:00 AM EST, Partial fill upon patient request if the prescription is for a schedule II opioid drug. Start Date: 10/09/22 Status: Ordered Repeat number: 1 Humalog 100 u/ml subcutaneous injection See Instructions, USE UP TO 100 UNITS DAILY VIA INSULIN PUMP, # 40 mL, 11 Refills, Maintenance, 02/05/24 8:30:00 AM EST, [facility], 180, cm, 11/15/23 9:55:00 EST, Height Start Date: 02/05/24 Status: Ordered Quantity: 40.0 Unit: mL Repeat number: 12 Indication: Type 1 diabetes mellitus without complications Ketostix See Instructions, # 2 vials, Refills 11, Tot. Refills 11, Maintenance, Use to check for ketones after getting 2 readings over 250mg/dL one hour apart, E10.9, 07/31/20 10:11:34 AM EDT, Compound Start Date: 07/31/20 Stop Date: 08/30/20 Status: Ordered Quantity: 2.0 Unit: vials Repeat number: 12 LaMICtal 100 mg oral tablet 100 mg, 1, tablet, By Mouth, Daily, # 90 tablet, Refills 3, Tot. Refills 3, Maintenance, 03/26/24 11:08:00 AM EDT, Route to Pharmacy Electronically, [facility], Partial fill upon patient request if the prescription is for a schedule II opioid drug., 180, cm, 03/16/24 10:25:00 EDT, Height Start Date: 03/26/24 Status: Ordered Quantity: 90.0 Unit: tablet Repeat number: 4 lamotrigine 25 mg oral tablet, extended release 1 tablet = 25 mg, By Mouth, Daily, Take with a 100 mg tablet to equal 125 mg's., # 90 tablet, 3 Refills, Maintenance, 03/26/24 11:08:00 AM EDT, ER Tablet, [facility], Partial fill upon patient request if the prescription is for a schedule II opioid drug., 180, cm, 03/16/24 10:25:00EDT, Height Start Date: 03/26/24 Status: Ordered Quantity: 90.0 Unit: tablet Repeat number: 4 lisinopril 2.5 mg oral tablet 1, tablet, By Mouth, Daily, # 90 tablet, Refills 1, Maintenance, 06/15/24 4:51:00 PM EDT, Route to Pharmacy Electronically, [facility], 180, cm, 05/19/24 9:37:00 EDT, Height Start Date: 06/15/24 Status: Ordered Quantity: 90.0 Unit: tablet Repeat number: 1 LORazepam 1 mg oral tablet 1 tablet = 1 mg, By Mouth, 2 times a day, PRN as needed for anxiety, # 60 tablet, 3 Refills, Maintenance, 09/08/24 11:38:00 AM EDT, Tablet, [facility], Partial fill upon patient request if the prescription is for a schedule II opioid drug., 180, cm, 08/31/24 15:06:00 EDT, Height Start Date: 09/08/24 Status: Ordered Quantity: 60.0 Unit: tablet Repeat number: 4 Pen Branford, 31 G x 8 mm BD Ultra Fine III See Instructions, # 150 each, Refills 11, Tot. Refills 11, Maintenance, use as directed for Type 2 Diabetes Mellitus, 10/24/20 10:46:00 AM EST, Supply, 180, cm, 07/11/20 13:25:00 EDT, Height, 91.8, kg, 06/20/19 13:47:00 EDT, Dry Weight Start Date: 10/24/20 Stop Date: 10/19/21 Status: Ordered Quantity: 150.0 Unit: each Repeat number: 12 QUEtiapine 100 mg oral tablet 100 mg, 1, tablet, By Mouth, 2 times a day, # 180 tablet, Refills 3, Tot. Refills 3, Maintenance, 07/21/24 11:11:00 AM EDT, Route to Pharmacy Electronically, [facility], Partial fillupon patient request if the prescription is for a schedule II opioid drug., 180, cm, 07/16/24 10:21:00 EDT, Height Start Date: 07/21/24 Status: Ordered Quantity: 180.0 Unit: tablet Repeat number: 4 QUEtiapine 400 mg oral tablet, extended release 400 mg, 1, tablet, By Mouth, Daily at bedtime, # 90 tablet, Refills 3, Tot. Refills 3, Maintenance,03/26/24 11:09:00 AM EDT, Route to Pharmacy Electronically, [facility], Partial fill upon patient request if the prescription is for a schedule II opioid drug., 180, cm, 03/16/24 10:25:00 EDT, Height Start Date: 03/26/24 Status: Ordered Quantity: 90.0 Unit: tablet Repeat number: 4 Sumatriptan = 100 mg, Once, 0 Refills, Maintenance, 12/26/21 9:13:00 AM EST, Partial fill upon patient request if the prescription is for a schedule II opioid drug. Start Date: 12/26/21 Status: Ordered Repeat number: 1 Topiramate = 50 mg, By Mouth, 2 times a day, 0 Refills, Maintenance, 12/26/21 9:11:00 AM EST, Partial fill uponpatient request if the prescription is for a schedule II opioid drug. Start Date: 12/26/21 Status: Ordered Repeat number: 1 zolpidem 10 mg oral tablet 1 tablet = 10 mg, By Mouth, Daily at bedtime, PRN as needed for insomnia, # 30 tablet, 5 Refills, Maintenance, 09/28/24 1:35:00 PM EDT, Tablet, [facility], Partial fill upon patientrequest if the prescription is for a schedule II opioid drug., 180, cm, 08/31/24 15:06:00 EDT, Height Start Date: 09/28/24 Status: Ordered Quantity: 30.0 Unit: tablet Repeat number: 6 zolpidem 10 mg oral tablet 1 tablet = 10 mg, By Mouth, Daily at bedtime, PRN as needed for insomnia, # 30 tablet, 5 Refills, Maintenance, 03/24/24 10:59:00 AM EDT, Tablet, [facility], Partial fill upon patientrequest if the prescription is for a schedule II opioid drug., 180, cm, 03/16/24 10:25:00 EDT, Height Start Date: 03/24/24 Status: Ordered Quantity: 30.0 Unit: tablet Repeat number: 6 zolpidem 10 mg oral tablet 1 tablet = 10 mg, By Mouth, Daily at bedtime, PRN as needed for insomnia, # 30 tablet, 5 Refills, Maintenance, 04/01/23 10:27:00 AM EDT, Tablet, [facility], Partial fill upon patient request if the prescription is for a schedule II opioid drug., 180, cm, 03/28/23 11:34:00 EDT, Height Start Date: 04/01/23 Status: Ordered Quantity: 30.0 Unit: tablet Repeat number: 6 Problem List Condition Confirmation Course Effective Dates Status H ealth Status Informant Benign paroxysmal vertigo Confirmed Active Benign prostate hyperplasia Confirmed Active Bipolar disorder Confirmed Active DKA (diabetic ketoacidoses) Confirmed Active Chronic fatigue Confirmed Active GERD (gastroesophageal reflux disease) Confirmed Active Hyperlipidemia Confirmed Active Insomnia Confirmed Active Mixed obsessional thoughts and acts Confirmed Active DR (diabetic retinopathy) Confirmed Active Elevated serum creatinine Confirmed Active Type 1 diabetes mellitus Confirmed Active Vertigo Confirmed Active Weight loss Confirmed Active Social History Social History Type Response Smoking Status Former smoker, quit more than 30 days ago entered on: 10/08/23 Sex Male Sex Representation Male (finding) Patient Care team information Care Team Personnel Name: Amy Rider RN Position: [facility] RN Member Role: Primary Care Nurse Name: Anayeli Crouch [place] Position: [facility] Office Staff Member Role: Primary Care Nurse Name: Diana Curry Position: [facility] Outreach Member Role: Primary Care Nurse Name: Mayra Taylor RN Position: [facility] Hospital Ecological Risk Assessor Member Role: Primary Care Nurse Name: Aldo Coelho MD Position: [facility] Physician - Primary Care Member Role: PCP Address: [address] [place] [id number] Telecom: Care Team Related Persons Name: CHRISTINA MEDEROS Name: MEJIA FREEMAN Insurance Providers Guarantor name: TEOFILO HANLEY Health Plan Information #: 1 Payer: MEDICARE PART B OUTPT Member Number: NA Policy Number: NA Group Number: NA Health Plan Information #: 2 Payer: [place] Member Number: NA Policy Number: NA Group Number: NA
--- OUTSIDE RECORDS SUMMARY | 2024-11-26 09:43 | XMS_ITS | Continuity of Care Document ---
Author Organization [facility] Bucky lt Address [address] [place] [address]- Care Team Providers Care Lead Generator Name Role Phone Laquita FUNK, Aldo Morales Primary Care Physician Encounter [facility] Date(s): 09/26/24 - 10/26/24 [facility] Adult [address] [place] [address]- Encounter Type: Triage Allergies, Adverse Reactions, Alerts Substance Criticality Severity Reaction Reaction Severity Status simvastatin Active sulfa drugs Active Latex Active Pork Active Immunizations Given and Recorded Vaccine Date Status Refusal Reason SARS-CoV-2(COVID-19)mRNA-LNP vac([id number]) 11/28/23 Recorded influenza virus vaccine, inactivated 11/15/23 [...] Virus Vaccine 10/26/81 Recor ded 1Result Comment: [id number] Medications Aspirin Enteric Coated 81 mg oral [...] Daily, # 60 capsule, 3 Refills, Maintenance, 09/19/24 11:08:00 AM EDT,Capsule, [facility], Partial fill upon patient request if the prescription is fora schedule II opioid drug., 180, cm, 08/31/24 [...] tablet Repeat number: 1 Free Style Precision EED test strips Free Style Precision EDE test [...] 60.0 Unit: tablet Repeat number: 4 Pen [place], 31 G x 8 mm BD Ultra [...] EDT, Route to Pharmacy Electronically, [facility], Partial fillupon patient request if [...] EDT, Route to Pharmacy Electronically, [facility], Partial fill upon patient request [...] Refills, Maintenance, 09/28/24 1:35:00 PM EDT, Tablet, [facility], Partial fill upon patientrequest if [...] Refills, Maintenance, 03/24/24 10:59:00 AM EDT, Tablet, [facility], Partial fill upon patientrequest if [...] Refills, Maintenance, 04/01/23 10:27:00 AM EDT, Tablet, [facility], Partial fill upon patient request [...] Team Personnel Name: Amy Rider RN Position: [facility] RN Member Role: Primary Care Nurse Name: Anayeil Crouch MA Position: [facility] Office Staff Member Role: Primary Care Nurse Name: Diana Curry Position: [facility] Outreach Member Role: Primary Care Nurse Name: Mayra Taylor RN Position: [facility] Hospital Hospitalist Nocturnist Physician Member Role: Primary Care Nurse Name: Aldo Coelho MD Position: [facility] Physician - Primary Care Member Role: PCP Address: [address] [place] [id number] Telecom: Care Team Related Persons Name: CHRISTINA MEDEROS Name: MEJIA FREEMAN Insurance Providers Guarantor name: TEOFILO HANLEY Health Plan Information #: 1 Payer: MEDICARE PART B OUTPT Member Number: NA Policy Number: NA Group Number: NA Health Plan Information #: 2 Payer: [place] Member Number: NA Policy Number: NA Group Number: NA
[2024-11-26 09:52] VITALS: BP 100/59; PULSE 83; BMI 25.2
--- NOTE | 2024-11-26 09:52 | A.OFFVIS_ITS ---
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 and collapse Intake Note: New had a single sycope in the Spring has pre-syncope at times School Traffic Supervisor Required: No Allergies pork derived (porcine) Allergy (Severe, Verified 07/17/24 11:17) Diarrhea simvastatin Allergy (Severe, Verified 07/17/24 11:17) Muscle Pain Latex Allergy (Severe, Uncoded 07/17/24 11:17) Rash Sulfa Allergy (Unknown, Uncoded 07/17/24 11:17) Anaphylaxis Medication List - Last Reconciled 11/26/24 by Bo Badillo MD atorvastatin 20 mg PO DAILY calcipotriene 0.005% appl topical BID clonazepam 0.5 mg PO DAILY finasteride 5 mg PO DAILY fluoxetine 80 mg PO DAILY folic acid 1 mg PO DAILY 30 days fremanezumab-vfrm (Ajovy) 225 mg (1.5 mL) subcut ONCE 30 days gabapentin 300 mg (1/2 x 600 mg) PO BID 30 days insulin lispro (Humalog KwikPen (U-100) Insulin) 1 - 5 sliding scale doses subcut TID lamotrigine 100 mg PO DAILY lamotrigine ER 25 mg PO DAILY lisinopril 2.5 mg PO DAILY quetiapine ER 600 mg PO QPM sumatriptan succinate 50 - 100 mg (0.5 - 1 x 100 mg) PO Q2H PRN 30 days topiramate 50 mg PO BID 90 days triamcinolone acetonide 0.1% 1 appl topical BID-TID zolpidem 10 mg PO BEDTIME PRN HPI Comments Details: Thank you for referring Rajendra in cardiology consultation today for possible workup for syncope. Patient was 44-year-old male with longstanding history of diabetes insulin requiring since age 20. Patient was been taking his diabetic medications religiously. Recently while taking care of his chickens, he was standing and then opening up the gate to the chicken coup and then suddenly he found himself sitting up, not remembering how he got on the floor. He is not sure if he was flat on the floor and then got up. He said does not recall any events. There was no prodrome of symptoms prior to him passing out. Denies any tunnel vision, warm feeling, nausea, vomiting. No chest pain or shortness of breath or rapid heart rate. Patient says he has intermittent episodes of tunnel vision. He has no lightheadedness. He says more recently he has been noticing blood pressures been lower significantly compared to in the past. He has been on low-dose lisinopril for long time for renal protection from his diabetes. He said he drinks adequate amount of water daily. Avoid salt intake. Denies any exertional chest pain or shortness of breath. [facility] Medical History Psoriasis Alcoholism in remission Type I diabetes mellitus Insomnia HLD (hyperlipidemia) GERD (gastroesophageal reflux disease) Bipolar disorder Benign prostate hyperplasia BPPV (benign paroxysmal positional vertigo) Surgical History Hx of appendectomy Family History Father Diabetes mellitus Heart disease Hypothyroidism Social History Alcohol intake: former Year quit: 2019 Patient Tobacco Use Status: Former Tobacco user Tobacco use type: Cigarette Years Smoked: 10 years Review of Systems Const Denies chills, Denies daytime sleepiness, Reports fatigue, Denies fever(s), Denies frequent falls, Denies poor appetite, Denies snoring, Denies stops breathing during sleep, Denies weakness, Denies weight gain and Denies weight loss Eyes Denies loss of vision ENT Denies dizziness and Denies hearing loss Card Denies chest pain, Denies claudication, Denies leg edema, Reports lightheadedness, Denies palpitations, Denies dyspnea, Denies dyspnea on exertion and Denies orthopnea Resp Denies cough, Denies excessive phlegm production, Denies dyspnea, Denies dyspnea on exertion, Denies snoring and Denies wheezing GI Denies abdominal pain, Denies hematochezia, Denies change in bowel habits, Denies nausea and Denies vomiting Denies dysuria and Denies urinary frequency Musc Denies arthralgias, Denies muscle weakness, Denies numbness and Denies other (frequent falls) Skin/Breast Denies nail changes and Denies rash Neuro Denies Abnormal speech present, Denies dizziness, Denies frequent falls, Denies loss of vision, Denies memory loss, Denies numbness and Denies weakness Psych Denies depression and Denies memory loss Endo Reports fatigue and Denies palpitations Jt/Lymph Reports easy bruising and Reports other (anemia) Aller/Immun Denies wheezing Physical Exam Vital Signs: Last Vital Signs Pulse 103 H 11/26/24 10:14 BP 98/60 11/26/24 10:14 BMI result Body Mass Index 25.2 Const General: cooperative, comfortable, no acute distress, well developed, alert, a wake and Physically active Nutritional Appearance: average body habitus Orientation/consciousness: patient oriented x3 Limitations: no limitations HEENT Head: Yes normocephalic and Yes atraumatic Neck Neck: Yes trachea midline, Yes supple and Yes no JVD Resp Effort & Inspection: normal respiratory effort Auscultation: clear to auscultation bilaterally Cardio Jugular venous distension: no JVD Palpation: normal PMI Rate: regular rate Rhythm: regular rhythm Heart sounds: S1 normal heart sound present, S2 normal heart sound present, no click, no gallops, no murmurs and no rubs GI Auscultation: normal bowel sounds Skin General skin exam: no rashes or lesions noted Neuro General: patient oriented x3 and no focal motor deficits Speech: No Abnormal speech present Extrem General: Yes no clubbing, cyanosis or edema Psych Appearance: grossly normal Office Procedures EKG Details: EKG shows normal sinus rhythm with normal EKG with normal axis and normal intervals [id number], Complete Assessment & Plan Assessment & Plan (1) Syncope and collapse: Code(s): R55 - Syncope and collapse Category: Medical Plan: Patient appears to have had a syncopal episode although the history somewhat atypical as he said he was sitting upright when he came to consciousness. Highly unusual. He had no prodrome of symptoms prior to this. His blood pressure is on the lower side and he may be developing autonomic dysfunction related to his longstanding diabetes. He also has on multiple psychoactive medications that can promote orthostatic hypotension. I have advised him to increase her fluid as well as salt intake. Advised to monitor blood pressure closely at home. Will suggest an echocardiogram to evaluate for structural heart disease. Also suggest a head-up tilt-table test to evaluate for autonomic function. Further treatment based on the findings. Orthostatic precautions were discussed. Will also obtain 30 day event monitor to rule out any other significant arrhythmias. Follow up in the clinic after above-mentioned test. Thank you for allowing me to partake in his Orders: Orders ECG Tilt Table Test 11/26/24 R55 - Syncope and collapse ECG 30 day event monitor 11/26/24 R55 - Syncope and collapse CA echo transthoracic complete 11/26/24 R55 - Syncope and collapse Coding Level of Care Code New Pt Level 4 (38986) Complex EM visit Add On G2211 Diagnoses Syncope and collapse R55 CPT Codes EKG - CPT: 50459-[id number], Complete ([id number])
[2024-11-26 10:14] VITALS: BP 104/60; BP 98/60; PULSE 103; PULSE 92
== END 2024-11-26 10:39 | disposition home or self-care (01) ==
PROVIDERS: PCP Internal Medicine; Visit Provider Internal Medicine Cardiovascular Disease
DX: R55 Syncope and collapse (principal)
CPT/HCPCS: 93010; 99204; G2211

== ENCOUNTER → 2024-11-26 09:40 | Outpatient (BNVA) | payer MEDICARE, MEDICAID, SELFPAY | PROVIDERS: PCP Internal Medicine; Visit Provider Internal Medicine Cardiovascular Disease | DX: R55 Syncope and collapse (principal); Z87.891 Personal history of nicotine dependence | CPT/HCPCS: 93005; 99202 ==

== ENCOUNTER → 2024-12-09 07:46 | Outpatient (REF) | payer MEDICARE, MEDICAID, SELFPAY ==
--- NOTE | 2024-12-09 07:52 | CA_ITS ---
Transthoracic Echocardiogram Patient (Last, First, Middle): Rajendra Taylor, Gender: Male Date of : 1980 Age: 44 Procedure Date: 12/09/2024 Procedure Type: Transthoracic Echocardiogram Location: OP Height: 180.34 cm Weight: 81.65 kg BSA: 2.02 m2 Heart Rate: bpm BP: 100 / 59 mmHg Printer Slotter Operator: RODRI Referring MD: Bo Badillo MD Symptoms: R55 - Syncope and collapse Study Quality: Fair/Contrast ECG Rhythm: Sinus Conclusions: - The left ventricular systolic function is normal. The visually estimated ejection fraction is between 55-60%. - No obvious valvular pathology seen on this study. Findings Procedure Information Contrast agent, definity, is being given per protocol without apparent complications. Left Ventricle Normal left ventricular cavity size. There is normal left ventricular wall thickness. The left ventricular systolic function is normal. The visually estimated ejection fraction is between 55-60%. There is no evidence of regional wall motion abnormalities. Diastolic function is normal for age. Right Ventricle Normal right ventricular cavity size and systolic function. Atria Both atria are normal in size. Aortic Valve There is a normal trileaflet aortic valve. There is no aortic valve stenosis. There is no aortic valve regurgitation. Mitral Valve The mitral valve appears normal. There is trace mitral valve regurgitation. There is no mitral valve stenosis. Pulmonic Valve The pulmonic valve is likely normal. Tricuspid Valve There is mild tricuspid valve regurgitation. There is no evidence of pulmonary hypertension. Great Vessels The asc aorta and aortic arch are normal in size. Venous The inferior vena cava is normal in size and collapses greater than 50% with inspiration. Pericardium/Pleural There is no evidence of pericardial effusion. Prior Study Comparison No prior study available for comparison. Recommendations, Care & Conclusions No obvious valvular pathology seen on this study. Measurements 2D Linear Measurements IVSd: 0.80 0.6-0.9/0.6-1.0 cm LVIDd: 4.69 3.9-5.3/4.2-5.9 cm LVIDd Index: 2.32 2.4-3.2/2.2-3.1 cm/m2 LVIDs: 3.32 2.0-3.6 cm LVPWd: 0.86 0.7-1.1 cm Ao Root: 3.40 2.1-3.5 cm LA Diam: 3.90 2.7-3.8/3.0-4.0 cm LAIDs Index: 1.93 1.5-2.3 cm/m2 LV Mass: 159.63 67-162/88-224 g LV Mass Index: 79.03 43-95/49-115 g/m2 LVOT Diam: 2.10 3.0+(-)1.3 cm 2D Systolic Function EF 4C: 66.80 >55% EF 2C: 63.20 >55% EF BiP: 65.80 >55% Mitral Valve MV Pk E: 0.79 MV PK A: 0.57 MV Decel Time: 196.00 E/A: 1.40 E'Lateral: 10.20 E'Medial: 8.05 E/E' Med: 9.90 E/E' Lat: 7.80 PHT: 57.00 MVA PHT: 3.86 Decel Coos: 4.04 Aortic Valve AoV Pk Kenan: 1.03 AoV Mn Kenan: 0.74 AoV VTI: 0.18 AoV Pk Grad: 4.00 Aov Mn Grad: 2.00 GONZÁLEZ Cont.VTI: 2.87 LVOT LVOT Pk Kenan: 0.71 LVOT Mn Kenan: 0.49 LVOT VTI: 0.15 LVOT Pk Grad: 2.00 LVOT Mn Grad: 1.00 LVOT Diam: 2.10 LVOT Area: 3.46 Diastolic Function MV Pk E: 0.79 MV Pk A: 0.57 E/A: 1.40 E'Medial: 8.05 E/E' Med: 9.90 E' Laterial: 10.20 E/E' Lat: 7.80 Right Ventricle TAPSE (mm): 20.80 TVS' Kenan: 11.10 Tricuspid Valve TR Pk Kenan: 2.21 TR Pk Grad: 20.00 RA Press: 3.00 RVSP: 23.00 Great Vessels Aorta Ao Root-2D: 3.40 2.0-3.7 cm Ao Asc: 2.80 2.1-3.4 cm Ao Arch: 2.80 Updated in Other Vendor System with Status of Final Omer Ramos MD electronically signed on 12/10/2024 11:21:37 AM with status of Final
== END ==
LOC: HO.CARD 07:46
PROVIDERS: PCP Internal Medicine; Visit Provider Internal Medicine Cardiovascular Disease
DX: R55 Syncope and collapse (principal)
CPT/HCPCS: 93270; 93306; Q9957

== ENCOUNTER → 2024-12-09 07:52 | Outpatient (BNV) | payer MEDICARE, MEDICAID, SELFPAY | PROVIDERS: PCP Internal Medicine; Visit Provider Internal Medicine | DX: I36.1 Nonrheumatic tricuspid (valve) insufficiency (principal) | CPT/HCPCS: 93306 ==

== ENCOUNTER 2025-01-26 09:59 | Outpatient (AMB) | payer MEDICARE, MEDICAID, SELFPAY ==
--- NOTE | 2025-01-26 10:15 | A.OFFVIS_ITS ---
Vital Signs 01/26/25 10:20 Height 5 ft 11 in Weight 190 lb BMI 26.5 BP 90/60 Blood Pressure Location Rt brachial Position Sitting Pulse 101 H Pulse Source Pulse Oximeter Pulse Oximetry (%) 97 Oxygen Delivery Method Room Air Intake Visit Reasons: Follow Up Intake Note: Patient presents follow up migraine/tremor. 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 Accompanied by: Self / Same As Patient Allergies pork derived (porcine) Allergy (Severe, Verified 01/28/25 09:58) Diarrhea simvastatin Allergy (Severe, Verified 01/28/25 09:58) Muscle Pain Latex Allergy (Severe, Uncoded 01/28/25 09:58) Rash Sulfa Allergy (Unknown, Uncoded 01/28/25 09:58) Anaphylaxis Medication List - Last Reconciled 01/26/25 by ROBERT Pederson atorvastatin 20 mg PO DAILY calcipotriene 0.005% appl topical BID finasteride 5 mg PO DAILY fluoxetine 80 mg PO DAILY fremanezumab-vfrm (Ajovy) 225 mg (1.5 mL) subcut ONCE 30 days gabapentin 300 mg (1/2 x 600 mg) PO BID 30 days insulin lispro (Humalog KwikPen (U-100) Insulin) 1 - 5 sliding scale doses subcut TID lamotrigine 100 mg PO DAILY lamotrigine ER 25 mg PO DAILY lisinopril 2.5 mg PO DAILY quetiapine ER 600 mg PO QPM sodium chloride 1,000 mg PO DAILY 30 days sumatriptan succinate 50 - 100 mg (0.5 - 1 x 100 mg) PO Q2H PRN 30 days topiramate 50 mg PO BID 90 days triamcinolone acetonide 0.1% 1 appl topical BID-TID zolpidem 10 mg PO BEDTIME PRN HPI Comments Details: The patient is a 44-year-old male presenting with orthostatic symptoms and persistent headache concerns. The primary concern is orthostatic hypotension, evidenced by a significant history of presyncope linked to postural changes, particularly following a tilt table test and introduction to nitroglycerin. Low blood pressure readings accompany these episodes, with present dietary difficulties in meeting daily sodium intake to mitigate symptoms. Balance and fall incidents are likely secondary to hypotensive syncopal-like episodes, diagnosed without neurologically indicative sequelae. Migraine management involves both preventive (Ajovy) and acute intervention (sumatriptan) strategies, supplemented by gabapentin which is used primarily for tremor tx, with manageable symptom control. 07/17/2024 HPI: Pt endorses the following interval medical history changes: He reports he had an episode of syncope in early January 2023. He went out to take care of the chickens- maybe in the mid-day, when next thing he knew he was on the ground. He does not know how long he was on the ground. He has difficulty recalling the details, however he states as he came to he felt feeling a bit unsure of what happened, his balance was a bit off and tired. He did not have [employer] or tongue biting. He does not think he hit his head- as he did not have any signs of bumps, bruises or injury. He was able to get up on his own, and went into his house and sat down for the rest of the day. He states he felt fine prior to going outside. He had already eaten. His blood sugar was WNL. He does not recall having any associated headache, dizziness, ear pain, infection. He had not missed any of his lamotrigine, Topiramate, or Gabapentin doses- used for headache and mood d/o. He thinks maybe he sat down and just passed out- he thinks maybe he was dizzy before he sat down. But does not think he was dizzy afterwards. He has never passed out before or had a seizure. He has not passed out since. He is not prone to orthostatic lightheadedness, staring off, chest pain, palpitations. He denies family h/o syncope, seizures. Overall having more headaches. In the last month, he has had 3 more severe migraine days where he took sumatripatn, however he has daily symptoms of bilateral supraorbital and retroorbital pressure a/w dizziness and activity intolerance. Dizziness is more easily triggered. His tremor is better on Gabapentin. [facility] Medical History Psoriasis Alcoholism in remission Type I diabetes mellitus Insomnia HLD (hyperlipidemia) GERD (gastroesophageal reflux disease) Bipolar disorder Benign prostate hyperplasia BPPV (benign paroxysmal positional vertigo) Surgical History Hx of appendectomy Family History Father Diabetes mellitus Heart disease Hypothyroidism Social History Alcohol intake: former Year quit: 2019 Patient Tobacco Use Status: Former Tobacco user Tobacco use type: Cigarette Years Smoked: 10 years Physical Exam Vital Signs: Last Vital Signs Pulse 101 H 01/26/25 10:20 BP 90/60 01/26/25 10:20 Pulse Ox 97 01/26/25 10:20 Oxygen Delivery Method Room Air 01/26/25 10:20 BMI result Body Mass Index 26.5 Const General: cooperative and no acute distress Orientation/consciousness: patient oriented x3 Resp Effort & Inspection: normal respiratory effort and able to speak in complete sentences Neuro General: patient oriented x3 and deep tendon reflexes 2+ bilaterally Cranial nerves: Yes CN's II-XII intact bilaterally Cognition (Neuro): normal cognition Gait exam (Neuro): Normal gait present Motor exam (neuro): 5/5 motor strength present throughout Psych Appearance: grossly normal Mental Status: mental status grossly normal Speech and movement: Normal speech and movement present Affect: normal affect Attitude: cooperative Assessment & Plan Assessment & Plan (1) Orthostatic hypotension: Code(s): I95.1 - Orthostatic hypotension Category: Medical (2) Syncope and collapse: Code(s): R55 - Syncope and collapse Category: Medical (3) Migraine with aura: Code(s): G43.109 - Migraine with aura, not intractable, without status migrainosus Category: Medical (4) Dizziness: Comment: likely vestibular migraine. normal brain MRI w/wo (Jul 2021) Code(s): R42 - Dizziness and giddiness Category: Medical (5) Tremor: Comment: ? ET or neuroleptic induced Code(s): R25.1 - Tremor, unspecified Category: Medical Plan Discussion Notes I discussed with the patient the continuation of current migraine management strategies with Ajovy and gabapentin, while ensuring appropriate refills are in place. Emphasis was on sodium supplementation as potential aid in mitigating orthostatic hypotension, examining new dietary approaches to ensure adequate sodium intake, and exploring viable supplementary forms. Risks, benefits of ongoing management plans, and potential use of sodium tablets were clearly outlined, recommending consistent follow-up and exploration of cardiological results before considering adjustments. For h/o unwitnessed isolated syncope in January 2024 and orthostatic lightheadedness: * EEG results were normal * Brain MRI results were normal * Try sodium supplements as discussed to help with low blood pressure symptoms. * Follow up cardiological assessments and discuss results in the next appointment. For daytime sleepiness: * Continue folic Acid 1mg qd- may purchase OTC, as pt has had positive effect from use. * Future considerations: HST ? For migraine and dizziness: * Continue Ajovy 225mg sc q month- may apply ice prior to injection. * Continue Topiramate 50mg bid. * Continue prn Sumatriptan at onset of migraine. * Continue Lamotrigene- per psych. * Continue using green lights and blue light filtering glasses. * Continue limiting dizziness triggers, pacing activities. * Previous trial: Amitriptyline- ineffective. * Contraindications: Beta-blockers d/t h/o diabetes type I. Nurtec- d/t pork allergy. Ant-HTN agents d/t h/o syncope and hypotension. * Future considerations- Aimovig, Qulipta, Vyepti, Neuromodulation device. ? For tremor: * Continue Gabapentin 300mg po bid (note pt cannot take capsule d/t pork allergy). * Contraindications: Beta-blockers d/t h/o diabetes type I. Medications: New sodium chloride 1,000 mg PO DAILY 30 tabs 1RF 30 days I95.1 - Orthostatic hypotension Refilled gabapentin 300 mg (1/2 x 600 mg) PO BID 30 tabs 6RF 30 days sumatriptan succinate max 2 tabs per day/4 tabs per week. 50 - 100 mg (0.5 - 1 x 100 mg) PO Q2H PRN 12 tabs 6RF migraine 30 days fremanezumab-vfrm (Ajovy) administer 225mg sc q month 225 mg (1.5 mL) subcut ONCE 1.5 mL 6RF 30 days topiramate 50 mg PO BID 180 tabs 1RF 90 days Coding Level of Care Code Est Pt Level 4 (73111) Complex EM visit Add On G2211 Diagnoses Orthostatic hypotension I95.1 Syncope and collapse R55 Migraine with aura G43.109 Dizziness R42 Tremor R25.1
[2025-01-26 10:20] VITALS: BP 90/60; PULSE 101; O2SAT 97; BMI 26.5
--- OUTSIDE RECORDS SUMMARY | 2025-01-26 11:35 | XMS_ITS | Clinical Summary ---
Author Organization [facility] Address [address] [place] [address] Phone Care Team Providers Care Breaker Mechanic Name Role Phone Aldo Coelho MD Primary Care Provider [phone] Encounters Date Type Department Care Team Description 12/08/2024 2:02 PM EST - 12/08/2024 11:59 PM EST Hospital Encounter [facility] Xray [address] [place] [address] Syncope and collapse Discharge Disposition: Home or Self Care from Last 3 Months Social History Tobacco Use Types Packs/Day Years Used Date Smoking Tobacco: Never Assessed Sex and Gender Information Value Date Recorded Sex Assigned at Not on file Legal Sex Male 8:23 PM EST Gender Identity Not on file Sexual Orientation Not on file Plan of Treatment Health Maintenance Due Date Last Done Comments Diabetes: Annual GFR (Glomerular Filtration Rate) 1980 Diabetes: Annual Foot Exam 1990 Diabetes: Annual Retina Eye Exam 1990 COVID-19 Vaccine ( season) 2024 11/28/2023, 11/27/2021, 04/16/2021, Additional history exists Influenza Vaccine (#1) 2024 11/15/2023 Cholesterol Screening (Lipid Panel) 11/27/2024 Depression Screening 11/27/2024 Diabetes: Annual Urine Albumin-Creatinine Ratio (uACR) 11/27/2024 Diabetes: Blood Sugar Control Test (HGBA1C) 11/27/2024 HIV Screening 11/27/2024 Hepatitis C Screening 11/27/2024 Medicare Annual Wellness Visit 11/27/2024 Social Influencers of Health Screening 11/27/2024 DTaP,Tdap,and Td Vaccines (10 - Td or Tdap) 12/02/2025 12/02/2015, 07/08/2013, 05/18/2013, Additional history exists IPV Vaccines Completed 04/29/1985, 03/02, 02/23/1981, Additional history exists MMR Vaccines Completed 03/16/1992, 10/26/1981 Hepatitis B Vaccines Completed 08/26/1998, 05/16/1998, 04/09/1998 Pneumococcal Vaccine: Pediatrics (0 to 5 Years) and At-Risk Patients (6 to 64 Years) Aged Out 05/21/2023, 12/10/2018 No longer eligibl e based on patient's age to complete this topic HIB Vaccines Aged Out No longer eligi ble based on patient's age to complete this topic HPV Vaccines Aged Out No longer eligi ble based on patient's age to complete this topic Hepatitis A Vaccines Aged Out No long er eligible based on patient's age to complete this topic Meningococcal ACWY Vaccine Aged Out N o longer eligible based on patient's age to complete this topic Meningococcal B Vacine Aged Out No lo nger eligible based on patient's age to complete this topic RSV Immunization Patients Under 20 months Aged Out No longer eligible based on patient's age to complete this topic Varicella Vaccines Aged Out No longer eligible based on patient's age to complete this topic Procedures Procedure Name Priority Date/Time Associated Diagnosis Comments TILT TABLE Routine 12/08/2024 2:34 PM EST Syncope and collapse from Last 3 Months Results * Tilt table (12/08/2024 2:34 PM EST) Anatomical Region Laterality Modality Radiographic Bernadine ging Narrative 12/08/2024 3:12 PM EST Tilt Table The patient was brought to lab in fasting state. Patient lied supine for 5 minutes for equilibrium. Baseline ECG showed normal sinus rhythm. Baseline supine minimum BP: 110/52 mmHg Baseline supine minimum HR: 80 bpm Tilt maintained for 20 minutes. Minimum BP during tilt: 123/68 mmHg Maximum BP during tilt: 128/64 mmHg Minimum heart rate during tilt: 84 bpm Maximum heart rate during tilt: 99 bpm Rhythm during tilt: normal sinus rhythm There was a clear orthostatic response not noted. Patient experienced a physiologic HR increase with tilt. Symptoms seen on tilt include: light headedness. Premonitory symptoms were not reproduced. Syncope/presyncope symptoms were not reproduced. Nitroglycerin was given during the test. Minimum BP under nitroglycerin: 80/50 Maximum HR under nitroglycerin: 102 Rhythm after nitroglycerin administration was sinus tachycardia. There was a clear orthostatic response noted. Patient experienced a physiologic HR increase with nitroglycerin. Symptoms seen after the nitroglycerin dose include: dizziness and near syncope. Premonitory symptoms were reproduced. Syncope/presyncope symptoms were reproduced. very hypotensive only 2 min after SL Ntg administered Conclusion: Abnormal tilt test with findings consistant with orthostatic hypotension. Bo Badillo MD [facility] PROCEDURES F inal Result from Last 3 Months Insurance MEDICA[place] - [place] MEDICARE Care Teams Breaker Mechanic Relationship Specialty Start Date End Date Aldo Coelho MD [address] [place] [address] PCP - General Internal Medicine 12/01/24
== END 2025-01-26 11:14 | disposition home or self-care (01) ==
PROVIDERS: PCP Internal Medicine; Visit Provider Nurse Practitioner Family
DX: I95.1 Orthostatic hypotension (principal); R55 Syncope and collapse; G43.109 Migraine with aura, not intractable, without status migrainosus; R42 Dizziness and giddiness; R25.1 Tremor, unspecified
CPT/HCPCS: 99214; G2211

== ENCOUNTER → 2025-01-26 09:59 | Outpatient (BNVA) | payer MEDICARE, MEDICAID, SELFPAY | PROVIDERS: PCP Internal Medicine; Visit Provider Nurse Practitioner Family | DX: I95.1 Orthostatic hypotension (principal); G43.109 Migraine with aura, not intractable, without status migrainosus; R42 Dizziness and giddiness; R25.1 Tremor, unspecified | CPT/HCPCS: 99212 ==

== ENCOUNTER 2025-01-28 09:38 | Outpatient (AMB) | payer MEDICARE, MEDICAID, SELFPAY ==
[2025-01-28 09:51] VITALS: BP 80/62; PULSE 97; BMI 26.4
--- NOTE | 2025-01-28 09:51 | MHC.OFFVIS ---
Vital Signs 01/28/25 09:51 Height 5 ft 11 in Weight 189 lb 2.506 oz BMI 26.4 BP 80/62 L Blood Pressure Location Lt brachial Position Sitting Pulse 97 Pulse Source Pulse Oximeter Intake Visit Reasons: 2 mth fu after echo, DAVIS Seed Production Field Supervisor Required: No Allergies pork derived (porcine) Allergy (Severe, Verified 01/28/25 09:58) Diarrhea simvastatin Allergy (Severe, Verified 01/28/25 09:58) Muscle Pain Latex Allergy (Severe, Uncoded 01/28/25 09:58) Rash Sulfa Allergy (Unknown, Uncoded 01/28/25 09:58) Anaphylaxis Medication List - Last Reconciled 01/28/25 by CASE Alvarez atorvastatin 20 mg PO DAILY calcipotriene 0.005% appl topical BID finasteride 5 mg PO DAILY fluoxetine 80 mg PO DAILY fremanezumab-vfrm (Ajovy) 225 mg (1.5 mL) subcut ONCE 30 days gabapentin 300 mg (1/2 x 600 mg) PO BID 30 days insulin lispro (Humalog KwikPen (U-100) Insulin) 1 - 5 sliding scale doses subcut TID lamotrigine 100 mg PO DAILY lamotrigine ER 25 mg PO DAILY lisinopril 2.5 mg PO DAILY quetiapine ER 600 mg PO QPM sodium chloride 1,000 mg PO DAILY 30 days sumatriptan succinate 50 - 100 mg (0.5 - 1 x 100 mg) PO Q2H PRN 30 days topiramate 50 mg PO BID 90 days triamcinolone acetonide 0.1% 1 appl topical BID-TID zolpidem 10 mg PO BEDTIME PRN HPI HPI 2 mth fu after echo, DAVIS: Details: Rajendra is a 44-year-old male with past medical history of diabetes, migraines, recent syncopal event, lightheadedness who underwent a echocardiogram, tilt-table test and 30 day cardiac event monitor and now presents for follow-up. Today he reports that he does have mild lightheadedness at times with position changes. He has not had any recurrent syncopal events. He says he did fall down 3 stairs recently but did not have any loss of consciousness. He is not clear on what triggered that event. He maintains good hydration by drinking approximately 64 oz daily. He is on Seroquel and believes that may be contributing to his low blood pressure readings. His activity is limited by his migraines and at times by his lightheadedness. He does not engage in exertional activities. No chest discomfort, shortness of breath, heart palpitations. Diabetes is well controlled. Compliant with meds. [facility] Medical History Psoriasis Alcoholism in remission Type I diabetes mellitus Insomnia HLD (hyperlipidemia) GERD (gastroesophageal reflux disease) Bipolar disorder Benign prostate hyperplasia BPPV (benign paroxysmal positional vertigo) Surgical History Hx of appendectomy Family History Father Diabetes mellitus Heart disease Hypothyroidism Social History Alcohol intake: former Year quit: 2019 Patient Tobacco Use Status: Former Tobacco user Tobacco use type: Cigarette Years Smoked: 10 years Review of Systems Const All systems reviewed & are unremarkable except as noted in HPI and below ENT Reports dizziness Card Denies chest pain, Denies chest pain at rest, Denies chest pain with activity, Denies rapid heart rate, Denies pedal edema, Denies edema, Denies leg edema, Denies lightheadedness, Denies palpitations, Denies dyspnea, Denies dyspnea on exertion and Denies orthopnea Resp Denies cough, Denies dyspnea and Denies dyspnea on exertion GI Denies hematochezia and Denies change in stool character Musc Denies abnormal gait, Denies limited range of motion, Denies muscle cramps, Denies muscle weakness, Denies numbness, Denies radiating pain into limb, Denies stiffness and Denies tingling Neuro Denies abnormal gait, Reports dizziness, Denies numbness and Denies tingling Endo Denies palpitations Physical Exam Vital Signs: Last Vital Signs Pulse 97 01/28/25 09:51 BP 80/62 L 01/28/25 09:51 BMI result Body Mass Index 26.4 Const General: cooperative, healthy appearing, comfortable and no acute distress Orientation/consciousness: patient oriented x3 Neck Neck: Yes normal visual inspection and Yes no JVD Resp Effort & Inspection: normal respiratory effort Auscultation: clear to auscultation bilaterally, no crackles, no rales, no rhonchi and no wheezes Cardio Rate: regular rate Rhythm: regular rhythm Heart sounds: S1 normal heart sound present, S2 normal heart sound present, no murmurs and no rubs Skin General skin exam: no rashes or lesions noted Neuro General: patient oriented x3 Extrem General: Yes normal to inspection, No no pedal edema and No calf tenderness Psych Appearance: grossly normal Mental Status: mental status grossly normal Speech and movement: Normal speech and movement present Assessment & Plan Assessment & Plan (1) Syncope and collapse: Code(s): R55 - Syncope and collapse Category: Medical Plan: Syncopal type episode recently occurred. He is noted to have low blood pressure readings. Cardiac testing included echocardiogram 12/09/2024 which showed EF 55-60%, no valve abnormalities and no regional wall motion abnormalities. A 30 day cardiac event monitor was done however report is not available at the time of this visit. A tilt-table test was done on 12/08/2024 which showed orthostatic hypotension. Test results reviewed with him. Diagnosis of orthostatic hypotension reviewed. He may have developed auto autonomic dysfunction from his diabetes. He is also on Seroquel which can add to orthostatic hypotension. He is going to discuss this with his psychiatric provider to see if an alternative medication can be used. Discuss the option for midodrine and he does not want to start new meds at this time. Discussed need for very good hydration continuing to drink greater than 64 oz daily, adding salt to his diet. I gave him 2 pairs of compression stockings from our office stock and instructed on their use. Will call him when cardiac event monitor results are available. Cardiology follow-up in 3 months, sooner if needed. He may be agreeable to start midodrine at that time. (2) Orthostatic hypotension: Code(s): I95.1 - Orthostatic hypotension Category: Medical Plan Time spent on chart review, documentation, interview and assessment Coding Level of Care Code Est Pt Level 4 (18906) Complex EM visit Add On G2211 Diagnoses Syncope and collapse R55 Orthostatic hypotension I95.1 Time Spent (min) 28
--- OUTSIDE RECORDS SUMMARY | 2025-01-28 11:01 | XMS_ITS | Clinical Summary ---
Author Organization [facility] Address [address] [place] [address] Phone Care Team Providers Care Customer Contact Specialist Name Role Phone Aldo Coelho MD Primary Care Provider [phone] Encounters Date Type Department Care Team Description 12/08/2024 2:02 PM EST - 12/08/2024 11:59 PM EST Hospital Encounter [facility] Xray [address] [place] [address] Syncope and collapse Discharge Disposition: [...] Insurance [place] - [place]ICARE Care Teams Customer Contact Specialist Relationship Specialty Start Date End Date Aldo Coelho MD [address] [place] [address] PCP - General Internal Medicine 12/01/24
--- OUTSIDE RECORDS SUMMARY | 2025-01-28 11:01 | XMS_ITS | Data Portability ---
Author Organization [place] - [facility], Allergy Address [address] [address] Care Team Providers Care Global Marketing Coordinator Name Role Phone RAI ZHANG Primary Care Provider Assessment No assessment recorded. [...] Details Recorded Time Vertigo of central origin 56343524 Active 2020 Vertigo of central origin; Note: Date Diagnosed : 07/11/2021 1:13 PM (H81.4) Not Available [facility] 4 02:31:42 Sensorine ural hearing loss of bilateral ears 187767540 Active 2020 Sensorine ural hearing loss, bilateral ; Note: Date Diagnosed : 07/11/2021 9:33 AM (H90.3) Not Available [facility] 4 02:31:41 Refractor y migraine 359090523 Active 2020 Other migraine, intractab le, without status migrainos us; Note: Date Diagnosed : 07/11/2021 1:13 PM (G43.819) Not Available [facility] 4 02:31:54 Bilateral tinnitus 87111400410 02 Active 2020 Tinnitus, bilateral ; Note: Date Diagnosed : 07/11/2021 9:33 AM (H93.13) Not Available [facility] 4 02:31:48 Dizziness and giddiness 540148169 Active 2020 Dizziness and giddiness ; Note: Date Diagnosed : 07/11/2021 9:33 AM (R42) Not Available [facility] 4 02:31:47 Sensorine ural hearing loss in left ear 13777829921 109 Active 2023 CRIS LAL MD [address] [place] [address], [facility] [place], [phone] , [facility] - [facility] 4 11:55:34 Problem Notes None recorded. Procedures Surgical History Date Name Laterality Status Provider Name and Address Organization Details Recorded Time Appendectomy completed Krupa Zhang [place] - [facility] 09/30/2024 16:10:48 Imaging Results None recorded. Procedure Notes None recorded. Medical Equipment None Reported. Allergies Allergen ID Allergen Name Allergen Category Reaction Reaction Severity Criticality Documentation Date Start Date Code Code System Note Provider Name and Address Organization Details Recorded Time 983123 pork allergeni c extract food,medi cation Not available Not available Not available 09/30/2024 34085 8 RxNorm Krupa santiago [place] - [facility] 4 16:11:54 940920 latex environme nt,medica tion Not available Not available Not available 09/30/2024 80262 91 RxNorm Krupa santiago [place] [facility] 16:11:59 55239 simvastat in medicatio n other Not available Not available 04/14/2024 95201 RxNorm React ion: Unkno wn; Not Available [facility] 4 00:54:51 Medications Name Sig Start Date [...] mg tablet 10/01 completed Medicati on ID: [id number] B rand Name: atorvast atin Sen d [...] mg capsule 10/01 completed Medicati on ID: [id number] B rand Name: hydroxyz ine pamoate Send [...] Available Not Available No t Available econazole nitrate 1 % topical cream APPLY TWICE DAILY [...] ous pen 10/01 completed Medicati on ID: [id number] B rand Name: Lantus Solostar U-100 Insulin Send Method: E-Prescr ibed Sub s Allowed: subs OK Medic ationGen ericName : Lantus Solostar U-100 Insulin Not Available Not Available Not Available Humalog KwikPen (U-100) Insulin 100 unit/mL subcutane ous 10/01 completed Medicati on ID: [id number] B rand Name: Humalog KwikPen Insulin Send [...] Details Last Updated DateTime 10/01/2024 180.34 cm 63578.55 g Krupa Zhang [place] [facility] 10/01/2024 11:28:39 Social History None recorded. Functional Status None recorded. Mental Status None recorded. Family History Nothing Reported. Medical History Condition Response Diabetes Y Anxiety Y Depression Y GERD/Reflux Y High Cholesterol Y Past Encounters Encounter ID Performer Location Encounter Start Date Encounter Closed Date Diagnosis/Indication Diagnosis SNOMED-CT Code Diagnosis ICD10 Code Diagnosis Note [id number] CRIS LAL MD [facility] [address] [address] 10/01/2024 10:24:27 10/01/2024 11:54:52 Sensorineural hearing loss in left ear [id number] 9109 H90.42 Patient with asymmetric sensorineu ral hearing loss affecting the left ear. He has already had retrocochl ear workup and requires no further imaging or testing in this regard. I have provided him medical clearance to return to [facility] audiology to discuss amplificat ion for the left ear. Refractory migraine 4238 99575 G43.819 I provided the patient some additional literature to help with his vestibular migraine treatment, particular with regards to identifica tion and eliminatio n of migraine triggers. Vertigo of central origin 07064716 H81.4 Health Concerns Section Related Observation LastModified by Organization Detai ls LastModified Time None Recorded Concern Status LastModified by Organization Details LastModified Time None Recorded Advance Directives Directive None Recorded Payers Encounter Date Sequence Insurance Name Policy Number Policy Culp Covered Member ID Culp Member ID Guarantor Name 10/01/2024 1 [place]ICARE B[place] [employer] Donald Taylor [id number] Rajendra Taylor 10/01/2024 2 [place]: [facility] Rajendra Taylor [id number] Rajendra Taylor Notes Date Note Type Note [...] bring up his motion intolerance with the electrophysiology scientist. His sister does have severe migraine. He did have a brief evaluation with physical therapy at [facility] which was not helpful. At that visit [...] since been working with a neurologist in [place] for treatment of vestibular migraine. He did have a new updated MRI scan which was reportedly normal. Patient had audiometric testing at [facility] audiology couple of months ago and was noted to have asymmetric sensorineural hearing loss affecting the left ear greater than right. He is looking to get amplification for the left ear and needs medical clearance. CRIS LAL MD [address] [place] [address], [place], [address], [facility] - [facility] 10/01/2024 11:56:54
== END 2025-01-28 10:28 | disposition home or self-care (01) ==
PROVIDERS: PCP Internal Medicine; Visit Provider Nurse Practitioner Family
DX: R55 Syncope and collapse (principal); I95.1 Orthostatic hypotension
CPT/HCPCS: 99214; G2211

== ENCOUNTER → 2025-01-28 09:38 | Outpatient (BNVA) | payer MEDICARE, MEDICAID, SELFPAY | PROVIDERS: PCP Internal Medicine; Visit Provider Nurse Practitioner Family | DX: I95.1 Orthostatic hypotension (principal); R55 Syncope and collapse | CPT/HCPCS: 99212 ==

== ENCOUNTER 2025-05-03 10:54 | Outpatient (AMB) | payer MEDICARE, MEDICAID, SELFPAY ==
--- NOTE | 2025-05-03 11:03 | MHC.OFFVIS ---
Vital Signs 05/03/25 11:04 Height 5 ft 11 in Weight 194 lb 0.108 oz BMI 27.1 BP 84/58 L Blood Pressure Location Lt brachial Position Sitting Pulse 95 Intake Visit Reasons: 3m follow up Intake Note: 3 month follow-up feeling ok still has some palpitations Deck Molder Required: No Allergies pork derived (porcine) Allergy (Severe, Verified 01/28/25 09:58) Diarrhea simvastatin Allergy (Severe, Verified 01/28/25 09:58) Muscle Pain Latex Allergy (Severe, Uncoded 01/28/25 09:58) Rash Sulfa Allergy (Unknown, Uncoded 01/28/25 09:58) Anaphylaxis Medication List - Last Reconciled 05/03/25 by Bo Badillo MD atorvastatin 20 mg PO DAILY calcipotriene 0.005% appl topical BID finasteride 5 mg PO DAILY fluoxetine 80 mg PO DAILY fremanezumab-vfrm (Ajovy) 225 mg (1.5 mL) subcut ONCE 30 days gabapentin 300 mg (1/2 x 600 mg) PO BID 30 days insulin lispro (Humalog KwikPen (U-100) Insulin) 1 - 5 sliding scale doses subcut TID lamotrigine 100 mg PO DAILY lamotrigine ER 25 mg PO DAILY lisinopril 2.5 mg PO DAILY quetiapine ER 600 mg PO QPM sodium chloride 1,000 mg PO DAILY 30 days sumatriptan succinate 50 - 100 mg (0.5 - 1 x 100 mg) PO Q2H PRN 30 days topiramate 50 mg PO BID 90 days triamcinolone acetonide 0.1% 1 appl topical BID-TID zolpidem 10 mg PO BEDTIME PRN HPI Comments Details: Rajendra comes for follow-up. Tilt-table test suggestive of orthostatic hypotension after nitro challenge. Patient echocardiogram which was within normal limits. Event monitor for some reason was lost. He has increase his fluid intake significantly to about a gal. He also tries to add salt to his diet. Continues to have orthostatic lightheadedness when he stands up. Has not had any syncopal episodes. No other cardiac symptoms including no arrhythmias. Continues to remain on lot of different psychoactive medications. Blood pressure at home says a best has been systolic 100. [facility] Medical History Psoriasis Alcoholism in remission Type I diabetes mellitus Insomnia HLD (hyperlipidemia) GERD (gastroesophageal reflux disease) Bipolar disorder Benign prostate hyperplasia BPPV (benign paroxysmal positional vertigo) Surgical History Hx of appendectomy Family History Father Diabetes mellitus Heart disease Hypothyroidism Social History Alcohol intake: former Year quit: 2019 Patient Tobacco Use Status: Former Tobacco user Tobacco use type: Cigarette Years Smoked: 10 years Review of Systems Const Denies chills, Denies fatigue, Denies fever(s), Denies frequent falls, Denies weakness, Denies weight gain and Denies weight loss ENT Denies dizziness Card Denies chest pain, Denies leg edema, Denies lightheadedness, Denies palpitations, Denies dyspnea, Denies dyspnea on exertion, Denies orthopnea and Denies other (loss of consciousness) Resp Denies cough, Denies dyspnea and Denies dyspnea on exertion GI Denies hematochezia and Denies change in stool character Musc Denies abnormal gait, Denies muscle weakness, Denies numbness, Denies radiating pain into limb and Denies tingling Neuro Denies abnormal gait, Denies dizziness, Denies frequent falls, Denies numbness, Denies tingling and Denies weakness Endo Denies fatigue and Denies palpitations Physical Exam Vital Signs: Last Vital Signs Pulse 95 05/03/25 11:04 BP 84/58 L 05/03/25 11:04 BMI result Body Mass Index 27.1 Const General: cooperative, healthy appearing, comfortable and no acute distress Orientation/consciousness: patient oriented x3 Neck Neck: Yes normal visual inspection and Yes no JVD Resp Effort & Inspection: normal respiratory effort Auscultation: clear to auscultation bilaterally, no crackles, no rales, no rhonchi and no wheezes Cardio Rate: regular rate Rhythm: regular rhythm Heart sounds: S1 normal heart sound present, S2 normal heart sound present, no murmurs and no rubs Skin General skin exam: no rashes or lesions noted Neuro General: patient oriented x3 Extrem General: Yes normal to inspection, No no pedal edema and No calf tenderness Psych Appearance: grossly normal Mental Status: mental status grossly normal Speech and movement: Normal speech and movement present Assessment & Plan Assessment & Plan (1) Orthostatic hypotension: Code(s): I95.1 - Orthostatic hypotension Category: Medical Plan: Syncope related to orthostatic hypotension most likely related to autonomic dysfunction both related to longstanding diabetes as use of psychoactive medications. This point time given his persistently low blood pressure would stop his lisinopril therapy. Risks associated with this including progressive renal disease was discussed. Advised to continue maintain adequate hydration as well as salt intake. Advised to continue monitor blood pressure at home maintain a log. If the blood pressure remains significantly low and/or ideas significant symptoms can prescribed alpha agonist such as midodrine to manage his blood pressure. Will follow up in 1 year's time, sooner p.r.n.. Thank you for allowing me to partake in his care Coding Level of Care Code Est Pt Level 3 (63877) Complex EM visit Add On G2211 Diagnoses Orthostatic hypotension I95.1
[2025-05-03 11:04] VITALS: BP 84/58; PULSE 95; BMI 27.1
--- OUTSIDE RECORDS SUMMARY | 2025-05-03 12:09 | XMS_ITS | Data Portability ---
Author Organization [place] - [facility], Allergy Address [address] [address] Care Team Providers Care Cardiopulmonary Specialist Name Role Phone RAI ZHANG Primary Care [...] Details Recorded Time Vertigo of central origin 88534495 Active 2020 Vertigo of central origin; Note: Date Diagnosed : 07/11/2021 1:13 PM (H81.4) Not Available [facility] 4 02:31:42 Sensorine ural hearing loss of bilateral ears 103627791 Active 2020 Sensorine ural hearing loss, bilateral ; Note: Date Diagnosed : 07/11/2021 9:33 AM (H90.3) Not Available [facility] 4 02:31:41 Refractor y migraine 411547298 Active 2020 Other migraine, intractab le, without status migrainos us; Note: Date Diagnosed : 07/11/2021 1:13 PM (G43.819) Not Available [facility] 4 02:31:54 Bilateral tinnitus 64591884700 02 Active 2020 Tinnitus, bilateral ; Note: Date Diagnosed : 07/11/2021 9:33 AM (H93.13) Not Available [facility] 4 02:31:48 Dizziness and giddiness 975646613 Active 2020 Dizziness and giddiness ; Note: Date Diagnosed : 07/11/2021 9:33 AM (R42) Not Available [facility] 4 02:31:47 Sensorine ural hearing loss in left ear 76787936177 109 Active 2023 CRIS LAL MD [address] [place] [address], [facility] [place], [phone] , [facility] - [facility] 4 11:55:34 Problem Notes None recorded. Procedures Surgical History Date Name Laterality Status Provider Name and Address Organization Details Recorded Time Appendectomy completed Krupa Zhang [place] - [facility] 09/30/2024 16:10:48 Imaging Results None recorded. Procedure Notes None recorded. Medical Equipment None Reported. Allergies Allergen ID Allergen Name Allergen Category Reaction Reaction Severity Criticality Documentation Date Start Date Code Code System Note Provider Name and Address Organization Details Recorded Time 178597 pork allergeni c extract food,medi cation Not available Not available Not available 09/30/2024 67841 8 RxNorm Krupa santiago [place] - [facility] 4 16:11:54 361196 latex environme nt,medica tion Not available Not available Not available 09/30/2024 39576 91 RxNorm Krupa santiago [place] [facility] 16:11:59 24898 simvastat in medicatio n other Not available Not available 04/14/2024 26961 RxNorm React ion: Unkno wn; Not Available [facility] 4 00:54:51 Medications Name Sig Start Date [...] mg tablet 10/01 completed Medicati on ID: [id number] B rand Name: atorvast atin Sen d [...] mg capsule 10/01 completed Medicati on ID: [id number] B rand Name: hydroxyz ine pamoate Send [...] ous pen 10/01 completed Medicati on ID: [id number] B rand Name: Lantus Solostar U-100 Insulin Send Method: E-Prescr ibed Sub s Allowed: subs OK Medic ationGen ericName : Lantus Solostar U-100 Insulin Not Available Not Available Not Available Humalog KwikPen (U-100) Insulin 100 unit/mL subcutane ous 10/01 completed Medicati on ID: [id number] B rand Name: Humalog KwikPen Insulin Send [...] Details Last Updated DateTime 10/01/2024 180.34 cm 68450.55 g Krupa Zhang [place] - [facility] 10/01/2024 11:28:39 Social History None recorded. Functional Status None recorded. Mental Status None recorded. Family History Nothing Reported. Medical History Condition Response Anxiety Y Depression Y Diabetes Y High Cholesterol Y GERD/Reflux Y Past Encounters Encounter ID Performer Location Encounter Start Date Encounter Closed Date Diagnosis/Indication Diagnosis SNOMED-CT Code Diagnosis ICD10 Code Diagnosis Note [id number] CRIS LAL MD [facility] [address] [address] 10/01/2024 10:24:27 10/01/2024 11:54:52 Sensorineural hearing loss in left ear [id number] 9109 H90.42 Patient with asymmetric sensorineu ral hearing loss affecting the left ear. He has already had retrocochl ear workup and requires no further imaging or testing in this regard. I have provided him medical clearance to return to [facility] audiology to discuss amplificat ion for the left ear. Refractory migraine 4238 30735 G43.819 I provided the patient some additional literature to help with his vestibular migraine treatment, particular with regards to identifica tion and eliminatio n of migraine triggers. Vertigo of central origin 62768002 H81.4 Health Concerns Section Related Observation LastModified by Organization Detai ls LastModified Time None Recorded Concern Status LastModified by Organization Details LastModified Time None Recorded Advance Directives Directive None Recorded Payers Insurance Date Sequence Insurance Name Policy Number Policy Culp Covered Member ID Culp Member ID Guarantor Name 10/01/2024 1 [place]ARE B[place]: [employer] Donald Taylor [id number] Rajendra Taylor 10/01/2024 2 [place]: [facility] Rajendra Taylor [id number] Rajendra Taylor Notes Date Note Type Note [...] bring up his motion intolerance with the cnc manufacturing engineer. His sister does have severe migraine. He did have a brief evaluation with physical therapy at [facility] which was not helpful. At that visit [...] since been working with a neurologist in [place] for treatment of vestibular migraine. He did have a new updated MRI scan which was reportedly normal. Patient had audiometric testing at [facility] audiology couple of months ago and was noted to have asymmetric sensorineural hearing loss affecting the left ear greater than right. He is looking to get amplification for the left ear and needs medical clearance. CRIS LAL MD [address] [place] [address], [place], [phone], [facility] - [facility] 10/01/2024 11:56:54
== END 2025-05-03 11:21 | disposition home or self-care (01) ==
LOC: HO.HCS 10:58
PROVIDERS: PCP Internal Medicine; Visit Provider Internal Medicine Cardiovascular Disease
DX: I95.1 Orthostatic hypotension (principal)
CPT/HCPCS: 99213; G2211

== ENCOUNTER → 2025-05-03 10:54 | Outpatient (BNVA) | payer MEDICARE, MEDICAID, SELFPAY | PROVIDERS: PCP Internal Medicine; Visit Provider Internal Medicine Cardiovascular Disease | DX: I95.1 Orthostatic hypotension (principal); R00.2 Palpitations | CPT/HCPCS: 99212 ==

== ENCOUNTER 2025-07-29 15:33 | Outpatient (AMB) | payer MEDICARE, MEDICAID, SELFPAY ==
--- NOTE | 2025-07-29 15:29 | A.OFFVIS_ITS ---
Intake Visit Reasons: follow up Intake Note: Follow up care Corporate Auditor Required: No Accompanied by: Self / Same As Patient Allergies pork derived (porcine) Allergy (Severe, Verified 07/29/25 15:30) Diarrhea simvastatin Allergy (Severe, Verified 07/29/25 15:30) Muscle Pain Latex Allergy (Severe, Uncoded 01/28/25 09:58) Rash Sulfa Allergy (Unknown, Uncoded 01/28/25 09:58) Anaphylaxis Medication List - Last Reconciled 07/29/25 by ROBERT Pederson atorvastatin 20 mg PO DAILY calcipotriene 0.005% appl topical BID diphenhydramine HCl (Benadryl Allergy) 25 mg PO Q4-6H PRN 30 days finasteride 5 mg PO DAILY fluoxetine 80 mg PO DAILY fremanezumab-vfrm (Ajovy) 225 mg (1.5 mL) subcut ONCE 30 days gabapentin 300 mg (1/2 x 600 mg) PO BID 30 days insulin lispro (Humalog KwikPen (U-100) Insulin) 1 - 5 sliding scale doses subcut TID lamotrigine 100 mg PO DAILY lamotrigine ER 25 mg PO DAILY metoclopramide HCl 5 - 10 mg (1 - 2 x 5 mg) PO Q4-6H PRN 30 days quetiapine ER 600 mg PO QPM sodium chloride 1,000 mg PO DAILY 30 days sumatriptan succinate 50 - 100 mg (0.5 - 1 x 100 mg) PO Q2H PRN 30 days topiramate 50 mg PO BID 90 days triamcinolone acetonide 0.1% 1 appl topical BID-TID zolpidem 10 mg PO BEDTIME PRN HPI Comments Details: 45-year-old male presents for follow-up of migraine, orthostatic hypotension, and tremor. Patient initially presented to the office in person as scheduled; however visit was converted to a televisit as the provider was running behind schedule. Patient reports he had a recent [facility] evaluation for hyperglycemia trending towards DKA; however, as he presented before going into full-blown DKA, this was easily managed medically. Patient continues to be followed by Cardiology. Cardiology advised him to hold lisinopril due to ongoing orthostatic lightheadedness and low-normal BP. He has not had interval syncope. He is trying to drink plenty of fluids and take salt as able. Review of recent labs in the [facility] portal shows anemia. He continues to manage his migraine with Ajovy, topiramate, sumatriptan. 01/26/2025, previous HPI: The patient is a 44-year-old male presenting with orthostatic symptoms and persistent headache concerns. The primary concern is orthostatic hypotension, evidenced by a significant history of presyncope linked to postural changes, particularly following a tilt table test and introduction to nitroglycerin. Low blood pressure readings accompany these episodes, with present dietary difficulties in meeting daily sodium intake to mitigate symptoms. Balance and fall incidents are likely secondary to hypotensive syncopal-like episodes, diagnosed without neurologically indicative sequelae. Migraine management involves both preventive (Ajovy) and acute intervention (sumatriptan) strategies, supplemented by gabapentin which is used primarily for tremor tx, with manageable symptom control. 07/17/2024 HPI: Pt endorses the following interval medical history changes: He reports he had an episode of syncope in early January 2023. He went out to take care of the chickens- maybe in the mid-day, when next thing he knew he was on the ground. He does not know how long he was on the ground. He has difficulty recalling the details, however he states as he came to he felt feeling a bit unsure of what happened, his balance was a bit off and tired. He did not have [employer] or tongue biting. He does not think he hit his head- as he did not have any signs of bumps, bruises or injury. He was able to get up on his own, and went into his house and sat down for the rest of the day. He states he felt fine prior to going outside. He had already eaten. His blood sugar was WNL. He does not recall having any associated headache, dizziness, ear pain, infection. He had not missed any of his lamotrigine, Topiramate, or Gabapentin doses- used for headache and mood d/o. He thinks maybe he sat down and just passed out- he thinks maybe he was dizzy before he sat down. But does not think he was dizzy afterwards. He has never passed out before or had a seizure. He has not passed out since. He is not prone to orthostatic lightheadedness, staring off, chest pain, palpitations. He denies family h/o syncope, seizures. Overall having more headaches. In the last month, he has had 3 more severe migraine days where he took sumatripatn, however he has daily symptoms of bilateral supraorbital and retroorbital pressure a/w dizziness and activity intolerance. Dizziness is more easily triggered. His tremor is better on Gabapentin. [facility] Medical History (Updated 08/02/25 @ 23:16 by ROBERT Pederson) Vitamin D deficiency Anemia Psoriasis Alcoholism in remission Type I diabetes mellitus Insomnia HLD (hyperlipidemia) GERD (gastroesophageal reflux disease) Bipolar disorder Benign prostate hyperplasia BPPV (benign paroxysmal positional vertigo) Surgical History Hx of appendectomy Family History Father Diabetes mellitus Heart disease Hypothyroidism Social History Alcohol intake: former Year quit: 2019 Patient Tobacco Use Status: Former Tobacco user Tobacco use type: Cigarette Years Smoked: 10 years Physical Exam Const General: cooperative and no acute distress Orientation/consciousness: patient oriented x3 Resp Effort & Inspection: normal respiratory effort and able to speak in complete sentences Neuro General: patient oriented x3, gait normal and moves all extremities Cognition (Neuro): normal cognition Gait exam (Neuro): Normal gait present Psych Appearance: grossly normal Mental Status: mental status grossly normal Speech and movement: Normal speech and movement present Affect: normal affect Attitude: cooperative Telehealth Telehealth Telehealth Platform: [facility] Location of provider rendering services: practice address Location of patient: other ([facility]) Patient Identification confirmed using: Name, : Yes Telehealth method: voice only Patient verbally consented to treatment: Yes Patient verbally consented to billing insurance company: Yes Patient informed of any privacy concerns related to visit: Yes Minutes spent on Phone/Video with Pt.: 22 Assessment & Plan Assessment & Plan (1) Migraine with aura: Code(s): G43.109 - Migraine with aura, not intractable, without status migrainosus Category: Medical Qualifiers: Status migrainosus presence: without status migrainosus Intractability: not intractable Qualified Code(s): G43.109 - Migraine with aura, not intractable, without status migrainosus (2) Orthostatic hypotension: Code(s): I95.1 - Orthostatic hypotension Category: Medical (3) Syncope and collapse: Code(s): R55 - Syncope and collapse Category: Medical (4) Tremor: Comment: ? ET or neuroleptic induced Code(s): R25.1 - Tremor, unspecified Category: Medical Plan For h/o unwitnessed isolated syncope in January 2024 and orthostatic lightheadedness: * EEG results were normal * Brain MRI results were normal * Continue taking increased fluids and salt as tolerated * Check labs * We will request nephrology consult for consideration of 24 hour BP monitor. For daytime sleepiness: * Continue folic Acid 1mg qd- may purchase OTC, as pt has had positive effect from use. * Future considerations: HST ? For migraine and dizziness: * Continue Ajovy 225mg sc q month- may apply ice prior to injection. * Continue Topiramate 50mg bid. * Continue prn Sumatriptan at onset of migraine. * Continue Lamotrigene- per psych. * Continue using green lights and blue light filtering glasses. * Continue limiting dizziness triggers, pacing activities. * Previous trial: Amitriptyline- ineffective. * Contraindications: Beta-blockers d/t h/o diabetes type I. Nurtec- d/t pork allergy. Ant-HTN agents d/t h/o syncope and hypotension. * Future considerations- Aimovig, Qulipta, Vyepti, Neuromodulation device. ? For tremor: * Continue Gabapentin 300mg po bid (note pt cannot take capsule d/t pork allergy). * Contraindications: Beta-blockers d/t h/o diabetes type I. Orders: Orders Creatine Kinase Total 07/29/25 D64.9 - Anemia, unspecified, E10.9 - Type 1 diabetes mellitus without complications, E53.8 - Deficiency of other specified B group vitamins, E55.9 - Vitamin D deficiency, unspecified, E78.5 - Hyperlipidemia, unspecified, I95.1 - Orthostatic hypotension Complete Blood Count Auto Diff 07/29/25 D64.9 - Anemia, unspecified, E10.9 - Type 1 diabetes mellitus without complications, E53.8 - Deficiency of other specified B group vitamins, E55.9 - Vitamin D deficiency, unspecified, E78.5 - Hyperlipidemia, unspecified, I95.1 - Orthostatic hypotension Vitamin B12 and Folate 07/29/25 D64.9 - Anemia, unspecified, E10.9 - Type 1 diabetes mellitus without complications, E53.8 - Deficiency of other specified B group vitamins, E55.9 - Vitamin D deficiency, unspecified, E78.5 - Hyperlipidemia, unspecified, I95.1 - Orthostatic hypotension Vitamin D 25-OH (D2 and D3) 07/29/25 D64.9 - Anemia, unspecified, E10.9 - Type 1 diabetes mellitus without complications, E53.8 - Deficiency of other specified B group vitamins, E55.9 - Vitamin D deficiency, unspecified, E78.5 - Hyperlipidemia, unspecified, I95.1 - Orthostatic hypotension IRON PROFILE 07/29/25 D64.9 - Anemia, unspecified, E10.9 - Type 1 diabetes mellitus without complications, E53.8 - Deficiency of other specified B group vitamins, E55.9 - Vitamin D deficiency, unspecified, E78.5 - Hyperlipidemia, unspecified, I95.1 - Orthostatic hypotension Lyme IgG/IgM w/reflex to WB 07/29/25 D64.9 - Anemia, unspecified, E10.9 - Type 1 diabetes mellitus without complications, E53.8 - Deficiency of other specified B group vitamins, E55.9 - Vitamin D deficiency, unspecified, E78.5 - Hyperlipidemia, unspecified, I95.1 - Orthostatic hypotension Methylmalonic Acid 07/29/25 D64.9 - Anemia, unspecified, E10.9 - Type 1 diabetes mellitus without complications, E53.8 - Deficiency of other specified B group vitamins, E55.9 - Vitamin D deficiency, unspecified, E78.5 - Hyperlipidemia, unspecified, I95.1 - Orthostatic hypotension Magnesium 07/29/25 D64.9 - Anemia, unspecified, E10.9 - Type 1 diabetes mellitus without complications, E53.8 - Deficiency of other specified B group vitamins, E55.9 - Vitamin D deficiency, unspecified, E78.5 - Hyperlipidemia, unspecified, I95.1 - Orthostatic hypotension Comprehensive [place]. Panel Fast 07/29/25 D64.9 - Anemia, unspecified, E10.9 - Type 1 diabetes mellitus without complications, E53.8 - Deficiency of other specified B group vitamins, E55.9 - Vitamin D deficiency, unspecified, E78.5 - Hyperlipidemia, unspecified, I95.1 - Orthostatic hypotension TSH reflex Free T4 07/29/25 D64.9 - Anemia, unspecified, E10.9 - Type 1 diabetes mellitus without complications, E53.8 - Deficiency of other specified B group vitamins, E55.9 - Vitamin D deficiency, unspecified, E78.5 - Hyperlipidemia, unspecified, I95.1 - Orthostatic hypotension Homocysteine 07/29/25 D64.9 - Anemia, unspecified, E10.9 - Type 1 diabetes mellitus without complications, E53.8 - Deficiency of other specified B group vitamins, E55.9 - Vitamin D deficiency, unspecified, E78.5 - Hyperlipidemia, unspecified, I95.1 - Orthostatic hypotension Vitamin B1 07/29/25 D64.9 - Anemia, unspecified, E10.9 - Type 1 diabetes mellitus without complications, E51.9 - Thiamine deficiency, unspecified, E53.8 - Deficiency of other specified B group vitamins, E55.9 - Vitamin D deficiency, unspecified, E78.5 - Hyperlipidemia, unspecified, I95.1 - Orthostatic hypotension Vitamin B6 07/29/25 D64.9 - Anemia, unspecified, E10.9 - Type 1 diabetes mellitus without complications, E53.8 - Deficiency of other specified B group vitamins, E55.9 - Vitamin D deficiency, unspecified, E78.5 - Hyperlipidemia, unspecified, I95.1 - Orthostatic hypotension Ferritin 07/29/25 D64.9 - Anemia, unspecified, E10.9 - Type 1 diabetes mellitus without complications, E53.8 - Deficiency of other specified B group vitamins, E55.9 - Vitamin D deficiency, unspecified, E78.5 - Hyperlipidemia, unspecified, I95.1 - Orthostatic hypotension Lipid Panel with Reflex 07/29/25 D64.9 - Anemia, unspecified, E10.9 - Type 1 diabetes mellitus without complications, E53.8 - Deficiency of other specified B group vitamins, E55.9 - Vitamin D deficiency, unspecified, E78.5 - Hyperlipidemia, unspecified, I95.1 - Orthostatic hypotension C Reactive Protein 07/29/25 D64.9 - Anemia, unspecified, E10.9 - Type 1 diabetes mellitus without complications, E53.8 - Deficiency of other specified B group vitamins, E55.9 - Vitamin D deficiency, unspecified, E78.5 - Hyperlipidemia, unspecified, I95.1 - Orthostatic hypotension Erythrocyte Sedimentation Rate 07/29/25 D64.9 - Anemia, unspecified, E10.9 - Type 1 diabetes mellitus without complications, E53.8 - Deficiency of other specified B group vitamins, E55.9 - Vitamin D deficiency, unspecified, E78.5 - Hyperlipidemia, unspecified, I95.1 - Orthostatic hypotension Referrals Nephrology Referral E10.9 - Type 1 diabetes mellitus without complications, I95.1 - Orthostatic hypotension Medications: Refilled sumatriptan succinate max 2 tabs per day/4 tabs per week. 50 - 100 mg (0.5 - 1 x 100 mg) PO Q2H PRN 12 tabs 6RF migraine 30 days Coding Level of Care Code Tele Est Pt Level 4 (30555) Diagnoses Migraine with aura and without status migrainosus, not intractable G43.109 Status migrainosus presence: without status migrainosus Intractability: not intractable Orthostatic hypotension I95.1 Syncope and collapse R55 Tremor R25.1
== END 2025-07-30 08:43 | disposition home or self-care (01) ==
PROVIDERS: PCP Internal Medicine; Visit Provider Nurse Practitioner Family
DX: G43.109 Migraine with aura, not intractable, without status migrainosus (principal); I95.1 Orthostatic hypotension; R55 Syncope and collapse; R25.1 Tremor, unspecified
CPT/HCPCS: 99214

== ENCOUNTER 2025-08-18 10:54 | Outpatient (REF) | payer MEDICARE, MEDICAID, SELFPAY ==
[2025-08-18 18:27] LABS: Appearance Urine Clear; Glucose Urine UA 100 mg/dL (Negative); PH 6.5 (5.0-9.0); Specific Gravity - Urine 1.015 (1.005-1.025)
[2025-08-18 18:28] LABS: MANUAL DIFF FLAG NO
[2025-08-18 18:33] LABS: Hematocrit 43.2 % (42.0-52.0); Hemoglobin 14.6 g/dl (14.0-18.0); Imm Gran Abs Auto 0.12 X10*3/uL (0.00-0.03); Imm Gran Pct Auto 1.2 % (0.0-0.4); Lymphocytes Absolute Auto 2.4 X10*3/uL (1.2-4.9); Mean Corpuscular HGB Conc 33.8 g/dl (31.0-36.0); Mean Corpuscular Hemoglobin 31.3 pg (27.0-33.0); Mean Corpuscular Volume 92.5 fL (80.0-98.0); NRBC Abs Auto 0.000 X10*3/uL (0.0-0.012); NRBC Pct Auto 0.0 /100WBC (0.0-0.2); Platelet Count 295 X10*3/uL (160-400); Red Blood Count 4.67 X10*6/uL (4.60-5.80); White Blood Count 9.7 X10*3/uL (4.8-10.8)
[2025-08-18 19:18] LABS: Alanine Aminotransferase 38 U/L (0-40); Albumin Level 4.2 g/dL (3.5-5.0); Alkaline Phosphatase 110 U/L (39-117); Anion Gap 10 (12-20); Aspartate Amino Transferase 35 U/L (5-37); Blood Urea Nitrogen 17 mg/dL (9-16); Calcium 9.7 mg/dL (8.4-10.2); Carbon Dioxide 25 mmol/L (22-29); Chloride 110 mmol/L (96-108); Cholesterol 184 mg/dL (<200); Estimated Glomerular Filt Rate > 60; Ferritin 136 ng/mL (20-250); Folate 11.8 ng/mL (> or = 4.0); HDL Cholesterol 60 mg/dL (>40); Iron 100 mcg/dL (45-160); Magnesium 2.3 mg/dL (1.6-2.6); Percent Iron Saturation 42 % (15-50); Potassium 4.2 mmol/L (3.3-5.1); Sodium 141 mmol/L (135-145); Total Iron Binding Capacity 236 mcg/dL (228-428); Total Protein 7.8 g/dL (6.5-8.0); Triglycerides 90 mg/dL (<150); Unsaturated Iron Binding 136 ug/dL; Vitamin B12 631 pg/mL (200-900)
[2025-08-18 19:42] LABS: Reflex LDLD? No
[2025-08-19 13:33] LABS: Lyme Abs Screen <0.90 index
[2025-08-24 06:34] LABS: Vitamin D 25-OH, D2 <4 ng/mL; Vitamin D 25-OH, D3 24 ng/mL; Vitamin D 25-OH, Total 24 ng/mL (30-100)
[2025-08-31 20:34] LABS: Cortisol, Free 0.48 mcg/dL
== END 2025-08-18 10:55 | disposition home or self-care (01) ==
LOC: HO.HKASLDS 10:54
PROVIDERS: PCP Internal Medicine; Referring Provider Nurse Practitioner Family; Visit Provider Internal Medicine Hypertension Specialist
DX: I95.1 Orthostatic hypotension (principal); E10.9 Type 1 diabetes mellitus without complications; G43.909 Migraine, unspecified, not intractable, without status migrainosus; E53.8 Deficiency of other specified B group vitamins; D64.9 Anemia, unspecified; E55.9 Vitamin D deficiency, unspecified; E78.5 Hyperlipidemia, unspecified; Z79.4 Long term (current) use of insulin
CPT/HCPCS: 36415; 80053; 80061; 81003; 82306; 82530; 82550; 82607; 82728; 82746; 83090; 83540; 83735; 83921; 84300; 84443; 85025; 85652; 86140; 86617; 86618; 99202

== ENCOUNTER 2025-08-18 10:54 | Outpatient (AMB) | payer MEDICARE, MEDICAID, SELFPAY ==
--- NOTE | 2025-08-18 11:09 | HO.NEPHOV_ITS ---
Vital Signs 08/18/25 11:10 Height 5 ft 11 in Weight 209 lb BMI 29.1 BP 92/72 Blood Pressure Location Lt brachial Position Sitting Pulse 97 Pulse Source Pulse Oximeter Pulse Oximetry (%) 97 Oxygen Delivery Method Room Air Intake Visit Reasons: DX: Orthostatic hypotension-Conf Diversified Crops Farmer Required: No Accompanied by: Self / Same As Patient Allergies pork derived (porcine) Allergy (Severe, Verified 08/18/25 11:11) Diarrhea simvastatin Allergy (Severe, Verified 08/18/25 11:11) Muscle Pain Latex Allergy (Severe, Uncoded 01/28/25 09:58) Rash Sulfa Allergy (Unknown, Uncoded 01/28/25 09:58) Anaphylaxis Medication List - Last Reconciled 08/18/25 by Rik Land MD apremilast (Otezla) 30 mg PO BID atorvastatin 20 mg PO DAILY calcipotriene 0.005% appl topical BID finasteride 5 mg PO DAILY fluoxetine 80 mg PO DAILY fremanezumab-vfrm (Ajovy) 225 mg (1.5 mL) subcut ONCE 30 days gabapentin 300 mg (1/2 x 600 mg) PO BID 30 days insulin lispro (Humalog KwikPen (U-100) Insulin) 1 - 5 sliding scale doses subcut TID lamotrigine 100 mg PO DAILY lamotrigine ER 25 mg PO DAILY lorazepam 1 mg PO BID PRN metoclopramide HCl 5 - 10 mg (1 - 2 x 5 mg) PO Q4-6H PRN 30 days quetiapine 100 mg PO BID quetiapine ER 600 mg PO QPM sumatriptan succinate 50 - 100 mg (0.5 - 1 x 100 mg) PO Q2H PRN 30 days topiramate 50 mg PO BID 90 days triamcinolone acetonide 0.1% 1 appl topical BID-TID zolpidem 10 mg PO BEDTIME PRN HPI Comments Details: The patient is a 45-year-old male presenting with management of hypotension and associated symptoms. He reports low blood pressure for at least two years, linked to diabetes mellitus diagnosed in 2002 or 2003. A syncopal episode occurred two years ago without injury. Underwent a tilt- table test which was reportedly positive in December 2023. Nitroglycerin was administered Symptoms include dizziness upon standing or bending, requiring sitting to prevent falls. Dizziness from hypotension is distinct from migraine-related dizziness, with brief breath loss and exhaustion noted. No excessive sweating or significant palpitations reported. Diabetes mellitus history includes initial oral medication management, transitioning to insulin within two years. Three DKA episodes occurred, twice at diagnosis and once recently in April. Recent blood glucose level was 159 mg/dL. Frequent migraines occur one to two times weekly, often triggered by activity. Current medications include topiramate, sumatriptan, lamotrigine, gabapentin, and Ajovy, with Ajovy noted as effective. Difficulty in determining individual medication efficacy due to concurrent use. Benign prostatic hyperplasia managed with finasteride, prescribed by PCP. Occasional urinary difficulties reported, currently stable. Medical History: - Diabetes Mellitus since - Diabetic Ketoacidosis, three episodes - Migraine - Benign Prostatic Hyperplasia Medications: - Topiramate for migraine - Sumatriptan for migraine - Lamotrigine for migraine - Gabapentin for migraine - Ajovy for migraine - Fluoxetine 80 mg for depression - Finasteride for benign prostatic hyperplasia High dose of quetiapine, lamotrigine Social History: - Former smoker, quit several years ago - Former alcohol use, quit five years ago Family History: - Family history of diabetes and prostate issues on paternal side [facility] Medical History (Updated 08/02/25 @ 23:16 by ROBERT Pederson) Vitamin D deficiency Anemia Psoriasis Alcoholism in remission Type I diabetes mellitus Insomnia HLD (hyperlipidemia) GERD (gastroesophageal reflux disease) Bipolar disorder Benign prostate hyperplasia BPPV (benign paroxysmal positional vertigo) Surgical History Hx of appendectomy Family History Father Diabetes mellitus Heart disease Hypothyroidism Social History Alcohol intake: former Year quit: 2019 Patient Tobacco Use Status: Former Tobacco user Tobacco use type: Cigarette Years Smoked: 10 years Review of Systems Const Denies fever(s) and Denies weight loss Card Denies chest pain Resp Denies cough and Denies hemoptysis GI Denies abdominal pain, Denies diarrhea and Denies nausea Musc Denies back pain Neuro Denies focal weakness Physical Exam Vital Signs: Last Vital Signs Pulse 97 08/18/25 11:10 BP 92/72 08/18/25 11:10 Pulse Ox 97 08/18/25 11:10 Oxygen Delivery Method Room Air 08/18/25 11:10 BMI result Body Mass Index 29.1 Comfortable Neck supple no JVD. Lungs entry equal no rales. Heart S1-S2 heard no gallop or rub. Abdomen soft nontender. Neuro alert awake oriented. No asterixis. Extremities no edema. Assessment & Plan Assessment & Plan (1) Orthostatic hypotension: Code(s): I95.1 - Orthostatic hypotension Category: Medical Plan Young man with diabetes mellitus type1 for almost 20 years along with significant migraine has hypotension with orthostasis. Differential diagnosis would include autonomic dysfunction in the setting of longstanding diabetes mellitus. However polypharmacy might be a major contributing factor. He is on multiple medications which could contribute to orthostatic blood pressure changes. Workup initiated. Check serum cortisol and plasma metanephrines. I would recommend adjusting / reduced his medications as clinically possible. Defer this to Neurology and Psychiatry. In the meantime we discussed all orthostatic precautions including Head end elevation at 30 degrees while in bed Tight stockings Gradual & cautious change in posture. Regular to increase salt diet. After the workup is completed if he is still has significant orthostasis I would certainly can consider adding midodrine during daytime to minimize the orthos tatic drop in blood pressure. Coding Level of Care Code New Pt Level 4 (04881) Diagnoses Orthostatic hypotension I95.1
[2025-08-18 11:10] VITALS: BP 92/72; PULSE 97; O2SAT 97; BMI 29.1
--- OUTSIDE RECORDS SUMMARY | 2025-08-18 13:53 | XMS_ITS | Clinical Summary ---
Author Organization [facility] Address [address] [place] [address] Phone Care Team Providers Care Business Objects Developer Name Role Phone Aldo Coelho MD Primary Care Provider [phone] Social History Tobacco Use Types Packs/Day Years [...] 1990 Diabetes: Annual Retina Eye Exam 1990 Cholesterol Screening (Lipid Panel) 11/27/2024 Colorectal Cancer Screening: Colonoscopy 11/27/2024 Diabetes: Annual Urine Albumin-Creatinine Ratio (uACR) 11/27/2024 Diabetes: Blood Sugar Control Test (HGBA1C) 11/27/2024 HIV Screening 11/27/2024 Hepatitis C Screening 11/27/2024 Medicare Annual Wellness Visit 11/27/2024 Social Influencers of Health Screening 11/27/2024 Depression Screening 12/02/2024 COVID-19 Vaccine ( season) 2025 11/28/2023, 11/27/2021, 04/16/2021, Additional history exists Influenza Vaccine (#1) 2025 11/15/2023 DTaP,Tdap,and Td Vaccines (10 - Td or Tdap) 12/02/2025 12/02/2015, 07/08/2013, 05/18/2013, Additional history exists IPV Vaccines Completed 04/29/1985, 03/02, 02/23/1981, Additional history exists MMR Vaccines Completed 03/16/1992, 10/26/1981 Hepatitis B Vaccines Completed 08/26/1998, 05/16/1998, 04/09/1998 Pneumococcal Vaccine: Pediatrics (0 to 5 Years) and At-Risk Patients (6 to 49 Years) Aged Out 05/21/2023, 12/10/2018 No longer [...] age to complete this topic Meningococcal B Vaccine Aged Out No l onger eligible based on patient's age to complete this topic RSV Immunization Patients Under 20 months Aged Out No longer eligible based on patient's age to complete this topic Varicella Vaccines Aged Out No longer eligible based on patient's age to complete this topic Insurance MEDICAID - [place] MEDICARE Member Subscriber Plan / Payer (Ef fective 2024-Present) Name:Rajendra Taylor Member ID:[id number] Relation to Subscriber:Self Name:Rajendra Taylor Subscriber ID:[id number] Payer ID:Not on file Group ID:Not on file Type:Medicare Address: [facility] [address] [phone] Care Teams Business Objects Developer Relationship Specialty Start Date End Date Aldo Coelho MD [address] [place] [address] PCP - General Internal Medicine 12/01/24
== END 2025-08-18 11:38 | disposition home or self-care (01) ==
LOC: HO.HKAS 10:55
PROVIDERS: PCP Internal Medicine; Referring Provider Nurse Practitioner Family; Visit Provider Internal Medicine Hypertension Specialist
DX: I95.1 Orthostatic hypotension (principal)
CPT/HCPCS: 99204

== ENCOUNTER → 2025-11-08 11:01 | Outpatient (REF) | payer MEDICARE, MEDICAID, SELFPAY | LOC: HO.CARD 11:01 | PROVIDERS: PCP Internal Medicine; Visit Provider Nurse Practitioner Family | DX: R00.2 Palpitations (principal) | CPT/HCPCS: 93242 ==

== ENCOUNTER → 2025-11-08 11:04 | Outpatient (BNV) | payer MEDICARE, MEDICAID, SELFPAY | PROVIDERS: PCP Internal Medicine; Visit Provider Internal Medicine Cardiovascular Disease | DX: R00.2 Palpitations (principal) | CPT/HCPCS: 93244 ==